=== PATIENT | female | born 1945 | race Caucasian/White ===

== ENCOUNTER 2018-07-13 23:02 | Inpatient (IN) | payer MEDICARE, OTHER ==
[2018-07-13] MEDS ORDERED: ONDANSETRON 4 MG/2 ML VIAL IVP STA (23:21)
[2018-07-13] MEDS ORDERED: SODIUM CHLORIDE 0.9% 1,000 ML IV ONE (23:21)
[2018-07-13] MEDS ORDERED: KETOROLAC 30 MG/ML VIAL IVP STA (23:21)
--- NOTE | 2018-07-13 23:24 | ED Physician Documentation ---
History of Present Illness - Stated complaint Stated Complaint: SIDE PX - Chief complaint Chief Complaint: Abd Pain - History obtained from History obtained from: Patient - History of Present Illness Timing: Prior to arrival - Additonal information Additional information: Patient is a 73-year-old female with history of nephrolithiasis, recurrent UTIs, and other bladder complications presenting with several hours of chills without known fever, although patient took Tylenol, as well as right flank pain that does not radiate and is associated with nausea, vomiting. Patient also reports dysuria without hematuria and denies stool changes. Patient was seen at [facility] earlier today and started on antibiotics, cefpodoxime, for likely UTI and kidney stone. Patient reports receiving a CAT scan earlier today, but unfortunately, does not have the disc or report with her. Currently, clinics are closed and we are unable to obtain these records. Patient is otherwise traveling from [place] and visiting her family and has been active without complaints over the past few days. Patient is compliant with all her other home medications and denies any particular improving or worsening factors to her symptoms. Review of Systems Constitutional: reports: Chills. denies: Fever GI: denies: Abdominal Pain Musculoskeletal: reports: Back pain PD PAST MEDICAL HISTORY - Past Medical History Cardiovascular: Hypertension, High cholesterol, Coronary artery disease, Other (coronary stent) Endocrine/Autoimmune: Other (thyroid disease) - Past Surgical History Past Surgical History: Yes Cardiovascular: Coronary stent - Present Medications Home Medications: Ambulatory Orders Medication Instructions Recorded Confirmed Aspirin [Children's Aspirin] 81 mg PO DAILY 07/14/18 07/14/18 Atorvastatin Calcium 80 mg PO DAILY 07/14/18 07/14/18 Cefpodoxime Proxetil 200 mg PO BID 07/14/18 07/14/18 Cyanocobalamin (Vitamin B-12) 1 tab PO DAILY 07/14/18 07/14/18 [Vitamin B-12] Garlic 580 mg PO DAILY 07/14/18 07/14/18 Levothyroxine Sodium 125 mcg PO DAILY 07/14/18 07/14/18 Losartan Potassium 25 mg PO DAILY 07/14/18 07/14/18 Metoprolol Tartrate 25 mg PO BID 07/14/18 07/14/18 Oxybutynin [Ditropan] 5 mg PO BID 07/14/18 07/14/18 Phenazopyridine [Pyridium] 200 mg PO TID 07/14/18 07/14/18 Sertraline HCl 100 mg PO DAILY 07/14/18 07/14/18 Ticagrelor [Brilinta] 90 mg PO BID 07/14/18 07/14/18 - Allergies Allergies/Adverse Reactions: Allergies Allergy/AdvReac Type Severity Reaction Status Date / Time Sulfa (Sulfonamide Allergy Unknown Verified 07/13/18 23:20 Antibiotics) morphine AdvReac Nausea Verified 07/13/18 23:20 PD ED PE NORMAL - General General: Alert and oriented X 3, No acute distress, Well developed/nourished - HEENT HEENT: Pharynx benign, Dentition benign. No: Moist mucous membranes (Slightly dry mucous membranes) - Cardiac Cardiac: RRR, No murmur - Respiratory Respiratory: No respiratory distress, Clear bilaterally - Abdomen Abdomen: Normal bowel sounds, Soft, Non tender, Non distended - Back Back: No: No CVA TTP (Right CVA tenderness) - Derm Derm: Normal color, Warm and dry, No rash - Extremities Extremities: No deformity, No tenderness to palpate - Neuro Neuro: Alert and oriented X 3, No motor deficit, No sensory deficit - Psych Psych: Normal mood, Normal affect Results - Vitals Vitals: Vital Signs - 24 hr 07/13/18 07/13/18 07/13/18 23:11 23:13 23:30 Temperature 36.7 C 36.7 C Heart Rate 124 H 91 120 H Respiratory 20 24 21 Rate Blood Pressure 158/95 H 204/104 H 158/95 H O2 Saturation 99 93 99 07/13/18 07/14/18 07/14/18 23:59 00:06 00:15 Temperature Heart Rate 97 101 H 95 Respiratory 17 24 20 Rate Blood Pressure 148/78 H 160/81 H 160/81 H O2 Saturation 99 99 100 07/14/18 07/14/18 07/14/18 00:23 00:44 01:15 Temperature 36.2 C L 36.3 C L Heart Rate 115 H 96 83 Respiratory 28 H 18 19 Rate Blood Pressure 94/66 140/75 H 141/71 H O2 Saturation 97 95 95 07/14/18 07/14/18 01:30 01:51 Temperature 36.1 C L Heart Rate 85 89 Respiratory 13 16 Rate Blood Pressure 141/71 H 146/69 H O2 Saturation 96 95 Oxygen O2 Source Nasal cannula Oxygen Flow Rate 3 - EKG (time done) 2352 Rate: Rate (enter#) (103) Rhythm: Sinus tachycardia Intervals: Prolonged QT Ischemia: Non specific changes - Labs Labs: Laboratory Tests 07/13/18 07/13/18 07/13/18 23:27 23:27 23:38 WBC 16.3 H RBC 4.97 Hgb 14.3 Hct 45.9 MCV 92.4 MCH 28.8 MCHC 31.1 L RDW 17.4 H Plt Count 383 MPV 8.2 Neut # (Auto) 12.2 H Lymph # (Auto) 3.1 [place] # (Auto) 0.8 Eos # (Auto) 0.0 Baso # (Auto) 0.2 H Absolute Nucleated RBC 0.01 Nucleated RBC % 0.1 PT INR APTT Sodium 139 Potassium 3.2 L Chloride 103 Carbon Dioxide 11 L* Anion Gap 25.0 H BUN 14 Creatinine 0.8 Estimated GFR (MDRD) 70 L Glucose 197 H POC Whole Bld Glucose 174 H Lactic Acid Calcium 9.6 Total Bilirubin 0.7 AST 47 H ALT 28 Alkaline Phosphatase 101 Troponin I Total Protein 8.6 H Albumin 4.7 Globulin 3.9 Albumin/Globulin Ratio 1.2 Lipase 28 TSH Urine Color Urine Clarity Urine pH Ur Specific [place] Urine Protein Urine Glucose (UA) Urine Ketones Urine Occult Blood Urine Nitrite Urine Bilirubin Urine Urobilinogen Ur Leukocyte Esterase Urine RBC Urine WBC Ur Squamous Epith Cells Urine Bacteria Ur Microscopic Review Urine Culture Comments Salicylates Urine Opiates Screen Ur Oxycodone Screen Urine Methadone Screen Ur Propoxyphene Screen Acetaminophen Ur Barbiturates Screen Ur Tricyclics Screen Ur Phencyclidine Scrn Ur Amphetamine Screen U Methamphetamines Scrn U Benzodiazepines Scrn Urine Cocaine Screen U Cannabinoids Screen 07/13/18 07/13/18 07/13/18 23:50 23:50 23:50 WBC RBC Hgb Hct MCV MCH MCHC RDW Plt Count MPV Neut # (Auto) Lymph # (Auto) [place] # (Auto) Eos # (Auto) Baso # (Auto) Absolute Nucleated RBC Nucleated RBC % PT 12.9 H INR 1.1 APTT 29.4 Sodium Potassium Chloride Carbon Dioxide Anion Gap BUN Creatinine Estimated GFR (MDRD) Glucose POC Whole Bld Glucose Lactic Acid > 10.0 H* Calcium Total Bilirubin AST ALT Alkaline Phosphatase Troponin I < 0.04 Total Protein Albumin Globulin Albumin/Globulin Ratio Lipase TSH Urine Color Urine Clarity Urine pH Ur Specific [place] Urine Protein Urine Glucose (UA) Urine Ketones Urine Occult Blood Urine Nitrite Urine Bilirubin Urine Urobilinogen Ur Leukocyte Esterase Urine RBC Urine WBC Ur Squamous Epith Cells Urine Bacteria Ur Microscopic Review Urine Culture Comments Salicylates Urine Opiates Screen Ur Oxycodone Screen Urine Methadone Screen Ur Propoxyphene Screen Acetaminophen Ur Barbiturates Screen Ur Tricyclics Screen Ur Phencyclidine Scrn Ur Amphetamine Screen U Methamphetamines Scrn U Benzodiazepines Scrn Urine Cocaine Screen U Cannabinoids Screen 07/13/18 07/13/18 07/14/18 23:50 23:50 00:17 WBC RBC Hgb Hct MCV MCH MCHC RDW Plt Count MPV Neut # (Auto) Lymph # (Auto) [place] # (Auto) Eos # (Auto) Baso # (Auto) Absolute Nucleated RBC Nucleated RBC % PT INR APTT Sodium Potassium Chloride Carbon Dioxide Anion Gap BUN Creatinine Estimated GFR (MDRD) Glucose POC Whole Bld Glucose Lactic Acid Calcium Total Bilirubin AST ALT Alkaline Phosphatase Troponin I Total Protein Albumin Globulin Albumin/Globulin Ratio Lipase TSH 1.51 Urine Color DARK YELLOW Urine Clarity CLEAR Urine pH 7.0 Ur Specific [place] 1.020 Urine Protein 100 H Urine Glucose (UA) 100 H Urine Ketones 15 H Urine Occult Blood TRACE-INTA Urine Nitrite POSITIVE H Urine Bilirubin NEGATIVE Urine Urobilinogen 1 (NORMAL) Ur Leukocyte Esterase NEGATIVE Urine RBC 6-10 H Urine WBC 0-3 Ur Squamous Epith Cells FEW Squamous Urine Bacteria Few Ur Microscopic Review INDICATED Urine Culture Comments INDICATED Salicylates < 6.0 Urine Opiates Screen NEGATIVE Ur Oxycodone Screen NEGATIVE Urine Methadone Screen NEGATIVE Ur Propoxyphene Screen NEGATIVE Acetaminophen < 10 L Ur Barbiturates Screen NEGATIVE Ur Tricyclics Screen NEGATIVE Ur Phencyclidine Scrn NEGATIVE Ur Amphetamine Screen NEGATIVE U Methamphetamines Scrn NEGATIVE U Benzodiazepines Scrn NEGATIVE Urine Cocaine Screen NEGATIVE U Cannabinoids Screen NEGATIVE PD MEDICAL DECISION MAKING - ED course Complexity details: reviewed old records, reviewed results, re-evaluated patient, considered differential, d/w patient, d/w family, d/w outside sales consultant ED course: Most concerning for UTI, pyelonephritis, nephrolithiasis given patient's history of such symptoms similar today. Patient was seen at [facility] earlier today and started on multiple medications including a cephalosporin for her likely UTI. Patient reports that she has taken 2 doses so far today. Patient did not appear septic upon arrival, although she was slightly tachycardic and with elevated blood pressure, but upon repeat measurements, these normalized, particularly given her history of hypertension. Also have low suspicion for other complications such as other intra-abdominal pathology, cardiac pathology, pulmonary pathology or otherwise. However, during her work-up, patient had a witnessed seizure of approximately 2 to 3 minutes, mostly tonic in nature. Patient was slightly hypoxic and required a nonrebreather during this time. No evidence of tongue biting or incontinence noted. Patient was postictal. Both patient and family deny any history of seizures.Unsure as to why patient experienced a seizure. Patient denies alcohol or drug use and toxicology screening returned negative. Patient does have thyroid disease and reports that she is compliant with all medications and TSH measured today was appropriate.Remainder of work-up including EKG, troponin, and other labs also unremarkable except for leukocytosis, likely due to her underlying infection. Of note, lactic acid and other measurements such as carbon dioxide, were immediately taken after her seizure and feel that that is reflective of her seizure activity, not infection or other complication. Patient then later stated that she also requires CPAP at home, which could be contributing to her mild hypoxia.CT head and CT abdomen/pelvis were obtained. CT head unremarkable for acute pathology including stroke. CT abdomen/pelvis revealed mild right- sided hydronephrosis without obstructing stone, but some artifact present from right hip prosthetic. Patient continues to complain of right flank pain and given leukocytosis, do feel it appropriate to admit her for pyelonephritis. Also discussed first-time seizure with hospitalist, who requested that I consult with neurology. Neurology's recommendations included no driving for 6 months and follow-up with MRI and EEG, either as an inpatient or as an outpatient. If patient was to have abnormal results or repeat seizure, she can be started on an antiepileptic drug. This information was conveyed to the hospitalist. Otherwise, hospitalist to admit and patient amenable to this plan. Departure - Departure Disposition: 66 [facility] DC/Xfer Clinical Impression: Pyelonephritis, Seizure Condition: Fair
[2018-07-14] LABS: BASOPHILS # (AUTO) 0.2 10^3/uL (0.0-0.1); BASOPHILS % (AUTO) 1.4 %; EOSINOPHILS % (AUTO) 0.1 %; HGB - HEMOGLOBIN 14.3 g/dL (12.0-16.0); LYMPHOCYTES # (AUTO) 3.1 10^3/uL (1.5-3.5); LYMPHOCYTES % (AUTO) 18.8 %; MEAN CORPUSCULAR HEMOGLOBIN 28.8 pg (27.0-31.0); MEAN CORPUSCULAR HGB CONC 31.1 g/dL (32.0-36.0); MEAN CORPUSCULAR VOLUME 92.4 fL (81.0-99.0); MEAN PLATELET VOLUME 8.2 fL (7.9-10.8); MONOCYTES # (AUTO) 0.8 10^3/uL (0.0-1.0); NEUTROPHILS # (AUTO) 12.2 10^3/uL (1.5-6.6); NEUTROPHILS % (AUTO) 74.7 %; PLT - PLATELET COUNT 383 10^3/uL (130-450); RED BLOOD COUNT 4.97 10^6/uL (4.20-5.40); RED CELL DISTRIBUTION WIDTH 17.4 % (12.0-15.0); WHITE BLOOD COUNT 16.3 x10^3/uL (4.8-10.8)
[2018-07-14 00:05] LABS: INR 1.1 (0.8-1.2); PT - PROTHROMBIN TIME 12.9 secs (9.9-12.6)
[2018-07-14 00:12] LABS: PARTIAL THROMBOPLASTIN TIME 29.4 secs (24.9-33.3)
[2018-07-14 00:18] LABS: MUDS CUTOFF CONCENTRATIONS CUTOFF CONC BELOW:
[2018-07-14 00:20] LABS: BILIRUBIN,URINE NEGATIVE (NEGATIVE); GLUCOSE, URINE (UA) 100 mg/dL (NEGATIVE); KETONES,URINE (UA) 15 mg/dL (NEGATIVE); LEUKOCYTE ESTERASE, URINE NEGATIVE (NEGATIVE); NITRITE,URINE POSITIVE (NEGATIVE); OCCULT BLOOD,URINE TRACE-INTA (NEGATIVE); PROTEIN,URINE 100 mg/dL (NEGATIVE); UROBILINOGEN,URINE 1 (NORMAL) E.U./dL (NORMAL)
[2018-07-14 00:31] LABS: BACTERIA,URINE Few /HPF (None Seen); CLARITY,URINE CLEAR (CLEAR); SQUAMOUS EPITHELIAL CELL,UR FEW Squamous (<= Few)
[2018-07-14 00:32] LABS: AMPHETAMINE SCREEN,URINE NEGATIVE (NEGATIVE); BENZODIAZEPINES SCREEN, URINE NEGATIVE (NEGATIVE); COCAINE SCREEN URINE NEGATIVE (NEGATIVE); METHADONE SCREEN, URINE NEGATIVE (NEGATIVE); METHAMPHETAMINES SCREEN, URINE NEGATIVE (NEGATIVE); OPIATE SCREEN, URINE NEGATIVE (NEGATIVE); OXYCODONE SCREEN, URINE NEGATIVE (NEGATIVE); PROPOXYPHENE SCREEN, URINE NEGATIVE (NEGATIVE); TRICYCLIC ANTIDEPRESSANT,URINE NEGATIVE (NEGATIVE)
[2018-07-14 00:34] LABS: ACETAMINOPHEN < 10 ug/mL (10-30); SALICYLATE < 6.0 mg/dL
[2018-07-14 00:40] LABS: ALBUMIN 4.7 g/dL (3.2-5.5); ALBUMIN/GLOBULIN RATIO 1.2 (1.0-2.2); BILIRUBIN,TOTAL 0.7 mg/dL (0.2-1.0); CALCIUM 9.6 mg/dL (8.5-10.3); CREATININE 0.8 mg/dL (0.4-1.0); TOTAL PROTEIN 8.6 g/dL (6.7-8.2)
--- NOTE | 2018-07-14 00:51 | CT Report ---
Reason: History of stones, R back pain, n/v Procedure Date: 07/14/2018 Accession Number: [id number] / [id number] Procedure: CT - Abdomen/Pelvis WO CPT Code: FULL RESULT: EXAM: CT ABDOMEN AND PELVIS (CT KUB) EXAM DATE: 07/14/2018 12:38 AM. CLINICAL HISTORY: Nausea, vomiting, right-sided back pain. History of kidney stones. COMPARISONS: None. TECHNIQUE: Routine axial helical CT imaging was performed through the abdomen and pelvis without IV contrast. Reconstructions: Coronal and sagittal. In accordance with CT protocol optimization, one or more of the following dose reduction techniques were utilized for this exam: automated exposure control, adjustment of mA and/or KV based on patient size, or use of iterative reconstructive technique. FINDINGS: Right Kidney/Ureter: There is slight right-sided hydroureteronephrosis. However, an obstructing stone is not visualized on this examination. Of note, the distal ureter is obscured by the streak artifact resulting from the right hip prosthesis. As such, a potential obstructing stone at this distal ureteral level could be obscured, if present. Left Kidney/Ureter: There are 2 tiny stones within the left lower kidney. No left-sided hydroureteronephrosis is demonstrated at this time. Suspect left-sided extrarenal pelvis. Abdominal Solid Organs: Abdominal parenchymal organs are without significant abnormality within the confines of a noncontrast exam. Gallbladder fundal adenomyomatosis. Bowel: No evidence of bowel obstruction. There is a moderate to large amount of retained colonic fecal matter. Appendix: Normal. Lymph Nodes: No definite pathologic lymphadenopathy. Fluid: No significant ascites. Vasculature: Normal caliber aorta. Moderate to severe aortic and branch vessel atherosclerosis is present. Pelvis: Streak artifact resulting from the right hip prosthesis obscures detailed assessment of the pelvis. Bladder is drained by Lala catheter, precluding assessment. Bones: No definite suspicious bony lesions demonstrated. Lower Chest: There is dependent airspace disease bilaterally, presumably atelectasis. Aspiration or infection difficult to exclude. There is moderate coronary vascular calcifications. IMPRESSION: 1. Mild right-sided hydroureteronephrosis. An obstructing stone is not evident on this exam. Of note, the right distal ureter is obscured by the streak artifact from the right hip prosthesis. As such, a potential stone within the right distal ureter would be obscured, if present. No intrarenal stones within the right kidney. 2. There are 2 punctate left lower kidney stones. No left-sided hydroureteronephrosis demonstrated. RADIA
--- NOTE | 2018-07-14 01:33 | CT Report ---
Reason: seizure Procedure Date: 07/14/2018 Accession Number: [id number] / [id number] Procedure: CT - HEAD WO CPT Code: FULL RESULT: EXAM: CT HEAD EXAM DATE: 07/14/2018 12:40 AM. CLINICAL HISTORY: Seizure. COMPARISON: None. TECHNIQUE: Multiaxial CT images were obtained from the foramen magnum to the vertex. Reformats: Sagittal and coronal. IV contrast: None. In accordance with CT protocol optimization, one or more of the following dose reduction techniques were utilized for this exam: automated exposure control, adjustment of mA and/or KV based on patient size, or use of iterative reconstructive technique. FINDINGS: Parenchyma: No intraparenchymal hemorrhage. No evidence of mass, midline shift, or CT findings of infarction. Mckeon-white differentiation is distinct. Extraaxial Spaces: Normal for age. No subdural or epidural collections identified. Ventricles: Normal in size and position. Sinuses and Orbits: Imaged paranasal sinuses, orbits, and mastoids show no significant abnormality. Bones: No evidence of fracture or calvarial defect. Other: None. IMPRESSION: Normal head CT. RADIA
[2018-07-14] MEDS ORDERED: ONDANSETRON 4 MG/2 ML VIAL IVP PRN (02:42)
[2018-07-14] MEDS ORDERED: cefTRIAXone 2 GM in SODIUM CHLORIDE 0.9% MINIBAG 100 ML IV SCH (02:50)
--- NOTE | 2018-07-14 02:55 | HISTORY & PHYSICAL EXAMINATION ---
Chief Complaint - Chief Complaint Chief Complaint: right flank pain History of Present Illness - Admitted From Admitted From:: [facility] ED - History Obtained From Records Reviewed: yes History obtained from: patient - History of Present Illness HPI Comment/Other: Patient seen on 07/14/18 at 0230am. Patient is a 73 y/o female who presented to the ED with right flank pain. It started 3 days ago and has been worsening. She was seen at the [facility] on 07/13/[address] scan done which according to her did not show any stone on the right side, but showed 2 small non-obstructing on the left. She was given pyridium and prescribed an oral cephalosporin of which she has taken 2 doses. She presented to the ED because of worsening pain. In the ED she experienced an episode of tonic clonic activity concerning for a seizure. It resolved before any medication could be administered. She says she was aware through out the experience. She denies any previous history of seizures. She denied fever or chills. No chest pain or abdominal pain. She has been nauseous today and vomited at home and on the way to the hospital. She also reports a moderate headache today. In the ED, CT head was unremarkable. However her UA suggested a UTI and she had a lactic acid of 10. These labs were obtained just shortly after the seizure-like activity. At the time of my visit, she was fully awake and alert and provided a full account with no difficult. She lives in [facility]. She is here visiting her sons who live in [place]. She lived in [place] for 10 years. She drove up from [place]. She recent had an [place] in February 2018 warranting PCI with stent placement. 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 Had to be on ceftriaxone 2g IV daily for 60 days. Was temporally disabled as a result - Past Surgical History Ortho: reports: Hip replacement (right) /CHEF UNDER: reports: Tubal ligation, Other (lithotripsy) Cardiovascular: reports: Coronary stent, Other (bilateral Carotid endarterectomy) HEENT: reports: Tonsil/Adenoidectomy - Family & Social History Family History: Mother: Cancer (bladder cancer), Father: CAD Living Situation: Alone Social History Notes: Patient is on [address] visiting family in [place]. She drove up from [facility] where she resides. She denies tobacco (quit 2000. 40 ppd year prior). Denies illicit drug use - POLST Patient has POLST: No POLST Status: Full Code Meds/Allgy - Home Medications Home Medications: Ambulatory Orders Medication Instructions Recorded Confirmed Aspirin [Children's Aspirin] 81 mg PO DAILY 07/14/18 07/14/18 Atorvastatin Calcium 80 mg PO DAILY 07/14/18 07/14/18 Cefpodoxime Proxetil 200 mg PO BID 07/14/18 07/14/18 Cyanocobalamin (Vitamin B-12) 1 tab PO DAILY 07/14/18 07/14/18 [Vitamin B-12] Garlic 580 mg PO DAILY 07/14/18 07/14/18 Levothyroxine Sodium 125 mcg PO DAILY 07/14/18 07/14/18 Losartan Potassium 25 mg PO DAILY 07/14/18 07/14/18 Metoprolol Tartrate 25 mg PO BID 07/14/18 07/14/18 Oxybutynin [Ditropan] 5 mg PO BID 07/14/18 07/14/18 Phenazopyridine [Pyridium] 200 mg PO TID 07/14/18 07/14/18 Sertraline HCl 100 mg PO DAILY 07/14/18 07/14/18 Ticagrelor [Brilinta] 90 mg PO BID 07/14/18 07/14/18 - Allergies Allergies/Adverse Reactions: Allergies Allergy/AdvReac Type Severity Reaction Status Date / Time Sulfa (Sulfonamide Allergy Unknown Verified 07/13/18 23:20 Antibiotics) morphine AdvReac Nausea Verified 07/13/18 23:20 Review of Systems - Constitutional Constitutional: denies: Fever, Chills, Night sweats - Eyes Eyes: denies: Blurred vision, Dipolpia - Ears, Nose & Throat Ears, Nose & Throat: denies: Nasal pain, Nasal discharge, Sore throat, Hoarseness - Cardiovascular Cariovascular: denies: Irregular heart rate, Chest pain, Edema, Lightheadedness, Syncope - Respiratory Respiratory: denies: Cough, Sputum production, Wheezing, Snoring, SOB at rest, SOB with exertion - Gastrointestinal Gastrointestinal: reports: Nausea, Vomiting. denies: Abdominal pain, Diarrhea, Change in bowel habits - Genitourinary Genitourinary: reports: Flank pain (right). denies: Frequency, Urgency, Hematuria - Musculoskeletal Musculoskeletal: denies: Back pain, Stiffness, Joint pain - Integumentary Integumentary: denies: Rash, Pruritis, Lesions - Neurological Neurological: reports: Headache, Seizures. denies: Focal weakness, Dizziness, Numbness - Psychiatric Psychiatric: reports: Depression - Endocrine Endocrine: denies: Polyuria, Polydypsia - Hematologic/Lymphatic Hematologic/Lymphatic: denies: Anemia, Bruising Prior Level of Functionality: She is independent of activities of daily living Exam - Vital Signs Vital Signs: Vital Signs x48h Temp Pulse Resp BP Pulse Ox 07/14/18 01:51 36.1 C L 89 16 146/69 H 95 07/14/18 01:30 85 13 141/71 H 96 07/14/18 01:15 36.3 C L 83 19 141/71 H 95 07/14/18 00:44 36.2 C L 96 18 140/75 H 95 07/14/18 00:23 115 H 28 H 94/66 97 07/14/18 00:15 95 20 160/81 H 100 07/14/18 00:06 101 H 24 160/81 H 99 07/13/18 23:59 97 17 148/78 H 99 07/13/18 23:30 120 H 21 158/95 H 99 07/13/18 23:13 36.7 C 91 24 204/104 H 93 07/13/18 23:11 36.7 C 124 H 20 158/95 H 99 - Physical Exam General Appearance: positive: Alert, Mild distress Eyes Bilateral: positive: Normal inspection, PERRL, EOMI ENT: positive: ENT inspection nml Neck: positive: Nml inspection, No JVD, Trachea midline Respiratory: positive: No respiratory distress, Breath sounds nml. negative: Wheezes, Rales, Rhonchi Cardiovascular: positive: No murmur, Tachycardia Abdomen: positive: No organomegaly, Nml bowel sounds, No distention. negative: Guarding, Rebound Back: positive: Nml inspection Skin: positive: Color nml Extremities: positive: Non-tender, Full ROM, Nml appearance. negative: No pedal edema Neurologic/Psychiatric: positive: Oriented x3, CN's nml (2-12), Motor nml, Sensation nml. negative: Facial droop, Slurred/abnml speech, Depressed mood/affect Sepsis Event Note (H) - Evaluation Current Stage of Sepsis: Sepsis Possible source of Sepsis: positive: Genitourinary - Sepsis Criteria Sepsis Criteria: Suspected or Documented, WBC count greater than 12,000 or less than 4000 Conclusion/Plan - Problem List (1) Pyelonephritis Conclusion/Plan: Rocephin 2g IV ordered Continue pyridium 100mg tid for 3 days IV hydration with normal saline Blood cultures pending Tylenol for fever (2) Seizure Conclusion/Plan: New onset. Etiology undetermined Neurology was contacted by ED Recommended MRI brain w/o contrast, EEG (may be done out patient) No anti-epileptic medication currently. However should patient seize again, maybe administer Keppra 750mg IV bid patient is not to drive for 6 months. This was explained to patient who expressed understanding. Son will drive her back to [facility]. (3) Coronary artery disease Conclusion/Plan: s/p PCI with stent in February 2018 Ob brilinta 90mg po bid (4) Hypothyroidism Conclusion/Plan: TSH was within normal level Resume Synthroid once verified (5) Hyperlipidemia Conclusion/Plan: On atorvastatin (6) Hypertension Conclusion/Plan: On losartan and metoprolol (7) Depression Conclusion/Plan: On sertraline - Lab Results Fish Bones: 07/13/18 23:27 07/13/18 23:27 Core Measures - Anticipated LOS I expect patient to be DC'd or transferred within 96 hours.: Yes - DVT/VTE - Prophylaxis VTE/DVT Device ordered at admit?: Yes
[2018-07-14] MEDS ORDERED: SODIUM CHLORIDE 0.9% 1,000 ML IV SCH (03:00)
[2018-07-14] MEDS ORDERED: oxyCODONE 5 MG TABLET PO PRN (04:07)
[2018-07-14] MEDS: SODIUM CHLORIDE FLUSH 0.9% 10 ML SYRINGE IVP PRN ×3 (04:09→11:25)
[2018-07-14] MEDS: PHENAZOPYRIDINE 100 MG TABLET PO SCH ×3 (05:46→22:29)
[2018-07-14 06:44] LABS: BASOPHILS # (AUTO) 0.1 10^3/uL (0.0-0.1); BASOPHILS % (AUTO) 0.7 %; LYMPHOCYTES # (AUTO) 1.2 10^3/uL (1.5-3.5); LYMPHOCYTES % (AUTO) 9.6 %; MEAN CORPUSCULAR HEMOGLOBIN 28.5 pg (27.0-31.0); MEAN CORPUSCULAR HGB CONC 32.6 g/dL (32.0-36.0); MEAN CORPUSCULAR VOLUME 87.4 fL (81.0-99.0); MEAN PLATELET VOLUME 7.8 fL (7.9-10.8); MONOCYTES # (AUTO) 0.8 10^3/uL (0.0-1.0); MONOCYTES % (AUTO) 6.3 %; NEUTROPHILS # (AUTO) 10.4 10^3/uL (1.5-6.6); NEUTROPHILS % (AUTO) 83.4 %; PLT - PLATELET COUNT 302 10^3/uL (130-450); RED BLOOD COUNT 4.55 10^6/uL (4.20-5.40); RED CELL DISTRIBUTION WIDTH 17.1 % (12.0-15.0); WHITE BLOOD COUNT 12.5 x10^3/uL (4.8-10.8)
[2018-07-14 06:47] LABS: CALCIUM 8.8 mg/dL (8.5-10.3); CREATININE 0.5 mg/dL (0.4-1.0)
[2018-07-14] MEDS: POLYETHYLENE GLYCOL 3350 17 GM PACKET PO SCH (08:08)
[2018-07-14] MEDS: ACETAMINOPHEN 325 MG TABLET PO PRN ×2 (08:08→20:12)
[2018-07-14] MEDS: SODIUM CHLORIDE FLUSH 0.9% 10 ML SYRINGE IVP SCH ×2 (08:10→17:24)
[2018-07-14] MEDS ORDERED: POTASSIUM CHLORIDE 20 MEQ TABLET PO SCH (08:50)
[2018-07-14] MEDS ORDERED: ATORVASTATIN 40 MG TABLET PO SCH (09:00)
[2018-07-14] MEDS ORDERED: CYANOCOBALAMIN PO SCH (09:00)
[2018-07-14] MEDS: LOSARTAN 50 MG TABLET PO SCH (09:53)
[2018-07-14] MEDS: LEVOTHYROXINE 125 MCG TABLET PO SCH ×2 (09:54→13:34)
[2018-07-14] MEDS: TICAGRELOR 90 MG PO SCH ×2 (09:54→20:14)
[2018-07-14] MEDS: OXYBUTYNIN 5MG TABLET PO SCH ×2 (09:54→20:13)
[2018-07-14] MEDS: METOPROLOL TARTRATE 25 MG TABLET PO SCH ×2 (09:54→20:13)
[2018-07-14] MEDS: ASPIRIN CHEW 81 MG TABLET PO SCH (09:54)
[2018-07-14] MEDS: SERTRALINE 50 MG TABLET PO SCH ×2 (09:55→13:34)
[2018-07-14] MEDS ORDERED: PROMETHAZINE INJ 25 MG in SODIUM CHLORIDE 0.9% 50 ML IV PRN (10:54)
[2018-07-14] MEDS: PROCHLORPERAZINE 10 MG/2 ML VIAL IVP PRN ×2 (11:25→17:24)
[2018-07-14] MEDS: SODIUM CHLORIDE 0.9% 1,000 ML IV SCH (12:00)
--- NOTE | 2018-07-14 14:22 | PROVIDER PROGRESS NOTE ---
Subjective - Prog Note Date Prog Note Date: 07/14/18 - Subjective Pt reports feeling: Improved Subjective: pt report her right flank is better but she complain of nausea, no vomiting. pt denies fever, chill, chest pain, cough. Current Medications - Current Medications Current Medications: Active Medications Acetaminophen (Tylenol) 650 mg PO Q4HR PRN PRN Reason: Pain 1 to 4 Last Admin: 07/14/18 08:08 Dose: 650 mg Aspirin (St Adolfo Aspirin) 81 mg PO DAILY [facility] Last Admin: 07/14/18 09:54 Dose: 81 mg Atorvastatin Calcium (Lipitor) 40 mg PO QPM [facility] Ceftriaxone Sodium 2 gm/ (Sodium Chloride) 100 mls @ 200 mls/hr IV Q24H [facility] Sodium Chloride (Normal Saline 0.9%) 1,000 mls @ 83.333 mls/hr IV .Q12H [facility] Stop: 07/15/18 10:59 Last Admin: 07/14/18 12:00 Dose: 83.333 mls/hr Promethazine HCl 25 mg/ Sodium (Chloride) 51 mls @ 100 mls/hr IV Q6H PRN PRN Reason: Nausea / Vomiting Levothyroxine Sodium (Synthroid) 125 mcg PO DAILY [facility] Last Admin: 07/14/18 13:34 Dose: Not Given Losartan Potassium (Cozaar) 25 mg PO DAILY [facility] Last Admin: 07/14/18 09:53 Dose: 25 mg Metoprolol Tartrate (Lopressor) 25 mg PO BID [facility] Last Admin: 07/14/18 09:54 Dose: 25 mg Non-Formulary Medication (Ticagrelor [Brilinta]) 90 mg PO BID [facility] Last Admin: 07/14/18 09:54 Dose: 90 mg Ondansetron HCl (Zofran Inj) 4 mg IVP Q6HR PRN PRN Reason: Nausea / Vomiting Last Admin: 07/14/18 08:48 Dose: 4 mg Oxybutynin Chloride (Ditropan) 5 mg PO BID [facility] Last Admin: 07/14/18 09:54 Dose: 5 mg Oxycodone HCl (Roxicodone) 5 mg PO Q4HR PRN PRN Reason: PAIN Phenazopyridine HCl (Pyridium) 100 mg PO TID [facility] Stop: 07/17/18 05:59 Last Admin: 07/14/18 05:46 Dose: 100 mg Polyethylene Glycol (Miralax) 17 gm PO DAILY [facility] Last Admin: 07/14/18 08:08 Dose: 17 gm Prochlorperazine Edisylate (Compazine Inj) 10 mg IVP Q4HR PRN PRN Reason: Nausea / Vomiting Last Admin: 07/14/18 11:25 Dose: 10 mg Sertraline HCl (Zoloft) 100 mg PO DAILY [facility] Last Admin: 07/14/18 13:34 Dose: Not Given Sodium Chloride (Normal Saline Flush 0.9%) 10 ml IVP PRN PRN PRN Reason: NEEDED PER PROVIDER ORDERS Last Admin: 07/14/18 11:25 Dose: 10 ml Sodium Chloride (Normal Saline Flush 0.9%) 10 ml IVP 0100,0900,1700 [facility] Last Admin: 07/14/18 08:10 Dose: 10 ml Aspirin [Children's Aspirin] 81 mg PO DAILY 07/14/18 Atorvastatin Calcium 40 mg PO QPM 07/14/18 Cyanocobalamin (Vitamin B-12) [Vitamin B-12] 1 tab PO DAILY 07/14/18 Garlic 580 mg PO DAILY 07/14/18 Levothyroxine Sodium 125 mcg PO QDAC 07/14/18 Losartan Potassium 25 mg PO DAILY 07/14/18 Metoprolol Tartrate 25 mg PO BID 07/14/18 Oxybutynin [Ditropan] 5 mg PO BID 07/14/18 Pantoprazole Sodium [Protonix] 40 mg PO QDAC 07/14/18 Sertraline HCl 100 mg PO DAILY 07/14/18 Ticagrelor [Brilinta] 90 mg PO BID 07/14/18 Objective - Vital Signs/Intake & Output Reviewed Vital Signs: Yes Vital Signs: Vital Signs x48h Temp Pulse Resp BP BP Pulse Ox 07/14/18 09:54 155/81 H 07/14/18 07:35 36.8 C 91 18 155/81 H 96 Intake & Output: Intake & Output 07/11/18 07/12/18 07/13/18 07/14/18 23:59 23:59 23:59 23:59 Intake Total 1972.084 Output Total 1325 Balance 647.084 - Objective General Appearance: positive: No acute distress, Alert. negative: Lethargic Eyes Bilateral: positive: Normal inspection, PERRL, No lid inflammation, Conjunctivae nml ENT: positive: ENT inspection nml, Pharynx nml, No signs of dehydration. negative: Purulent nasal drainage, Pharyngeal erythema, Oral lesions Neck: positive: Nml inspection, Thyroid nml, No JVD, Trachea midline. negative: Thyromegaly, Lymphadenopathy (R), Lymphadenopathy (L), Stiff neck, Swel ling/bruising, Tracheal deviation Respiratory: positive: Chest non-tender, No respiratory distress, Breath sounds nml. negative: Wheezes, Rales, Rhonchi Cardiovascular: positive: Regular rate & rhythm, No murmur, No gallop. negative: Irregularly irregular, Extrasystoles, Tachycardia, Bradycardia, JVD present, Systolic murmur, Diastolic murmur Peripheral Pulses: 2+ Radial (R), 2+ Radial (L), 2+ Dorsalis pedis (R), 2+ Ernesto salis pedis (L) Abdomen: positive: Non-tender, No organomegaly, Nml bowel sounds, No distention. negative: Tenderness, Guarding, Rebound Back: positive: Nml inspection. negative: CVA tenderness (R), CVA tenderness (L) Skin: positive: Color nml, No rash, Warm, Dry. negative: Cyanosis, Diaphoresis, Pallor Extremities: positive: Non-tender, Nml appearance. negative: Calf tenderness, Joint swelling, Claude's sign/cords Neurologic/Psychiatric: positive: Oriented x3, Sensation nml, Mood/affect nml. negative: Weakness, Sensory loss, Facial droop, Slurred/abnml speech, Depressed mood/affect - Lab Results Fish Bones: 07/14/18 06:25 07/14/18 06:25 Other Labs: Lab Results x24hrs 07/14/18 07/14/18 07/14/18 Range/Units 06:25 06:25 06:25 WBC 12.5 H (4.8-10.8) x10^3/uL RBC 4.55 (4.20-5.40) 10^6/uL Hgb 13.0 (12.0-16.0) g/dL Hct 39.8 (37.0-47.0) % MCV 87.4 (81.0-99.0) fL MCH 28.5 (27.0-31.0) pg MCHC 32.6 (32.0-36.0) g/dL RDW 17.1 H (12.0-15.0) % Plt Count 302 (130-450) 10^3/uL MPV 7.8 L (7.9-10.8) fL Neut # (Auto) 10.4 H (1.5-6.6) 10^3/uL Lymph # (Auto) 1.2 L (1.5-3.5) 10^3/uL [place] # (Auto) 0.8 (0.0-1.0) 10^3/uL Eos # (Auto) 0.0 (0.0-0.7) 10^3/uL Baso # (Auto) 0.1 (0.0-0.1) 10^3/uL Absolute Nucleated RBC 0.00 x10^3/uL Nucleated RBC % 0.0 /100WBC PT (9.9-12.6) secs INR (0.8-1.2) APTT (24.9-33.3) secs Sodium 135 (135-145) mmol/L Potassium 3.3 L (3.5-5.0) mmol/L Chloride 102 (101-111) mmol/L Carbon Dioxide 21 (21-32) mmol/L Anion Gap 12.0 (6-13) BUN 12 (6-20) mg/dL Creatinine 0.5 (0.4-1.0) mg/dL Estimated GFR (MDRD) 121 (>89) Glucose 129 H (70-100) mg/dL POC Whole Bld Glucose (70 - 100) mg/dL Lactic Acid 0.7 (0.5-2.2) mmol/L Calcium 8.8 (8.5-10.3) mg/dL Total Bilirubin (0.2-1.0) mg/dL AST (10-42) IU/L ALT (10-60) IU/L Alkaline Phosphatase (42-121) IU/L Troponin I (<0.49) ng/mL Total Protein (6.7-8.2) g/dL Albumin (3.2-5.5) g/dL Globulin (2.1-4.2) g/dL Albumin/Globulin Ratio (1.0-2.2) Lipase (22-51) U/L TSH (0.34-5.60) uIU/mL Urine Color Urine Clarity (CLEAR) Urine pH (5.0-7.5) PH Ur Specific [place] (1.002-1.030) Urine Protein (NEGATIVE) mg/dL Urine Glucose (UA) (NEGATIVE) mg/dL Urine Ketones (NEGATIVE) mg/dL Urine Occult Blood (NEGATIVE) Urine Nitrite (NEGATIVE) Urine Bilirubin (NEGATIVE) Urine Urobilinogen (NORMAL) E.U./dL Ur Leukocyte Esterase (NEGATIVE) Urine RBC (0-5) /HPF Urine WBC (0-5) /HPF Ur Squamous Epith Cells (<= Few) Urine Bacteria (None Seen) /HPF Ur Microscopic Review Urine Culture Comments Salicylates mg/dL Urine Opiates Screen (NEGATIVE) Ur Oxycodone Screen (NEGATIVE) Urine Methadone Screen (NEGATIVE) Ur Propoxyphene Screen (NEGATIVE) Acetaminophen (10-30) ug/mL Ur Barbiturates Screen (NEGATIVE) Ur Tricyclics Screen (NEGATIVE) Ur Phencyclidine Scrn (NEGATIVE) Ur Amphetamine Screen (NEGATIVE) U Methamphetamines Scrn (NEGATIVE) U Benzodiazepines Scrn (NEGATIVE) Urine Cocaine Screen (NEGATIVE) U Cannabinoids Screen (NEGATIVE) 07/14/18 07/13/18 07/13/18 Range/Units 00:17 23:50 23:50 WBC (4.8-10.8) x10^3/uL RBC (4.20-5.40) 10^6/uL Hgb (12.0-16.0) g/dL Hct (37.0-47.0) % MCV (81.0-99.0) fL MCH (27.0-31.0) pg MCHC (32.0-36.0) g/dL RDW (12.0-15.0) % Plt Count (130-450) 10^3/uL MPV (7.9-10.8) fL Neut # (Auto) (1.5-6.6) 10^3/uL Lymph # (Auto) (1.5-3.5) 10^3/uL [place] # (Auto) (0.0-1.0) 10^3/uL Eos # (Auto) (0.0-0.7) 10^3/uL Baso # (Auto) (0.0-0.1) 10^3/uL Absolute Nucleated RBC x10^3/uL Nucleated RBC % /100WBC PT (9.9-12.6) secs INR (0.8-1.2) APTT (24.9-33.3) secs Sodium (135-145) mmol/L Potassium (3.5-5.0) mmol/L Chloride (101-111) mmol/L Carbon Dioxide (21-32) mmol/L Anion Gap (6-13) BUN (6-20) mg/dL Creatinine (0.4-1.0) mg/dL Estimated GFR (MDRD) (>89) Glucose (70-100) mg/dL POC Whole Bld Glucose (70 - 100) mg/dL Lactic Acid (0.5-2.2) mmol/L Calcium (8.5-10.3) mg/dL Total Bilirubin (0.2-1.0) mg/dL AST (10-42) IU/L ALT (10-60) IU/L Alkaline Phosphatase (42-121) IU/L Troponin I (<0.49) ng/mL Total Protein (6.7-8.2) g/dL Albumin (3.2-5.5) g/dL Globulin (2.1-4.2) g/dL Albumin/Globulin Ratio (1.0-2.2) Lipase (22-51) U/L TSH 1.51 (0.34-5.60) uIU/mL Urine Color DARK YELLOW Urine Clarity CLEAR (CLEAR) Urine pH 7.0 (5.0-7.5) PH Ur Specific [place] 1.020 (1.002-1.030) Urine Protein 100 H (NEGATIVE) mg/dL Urine Glucose (UA) 100 H (NEGATIVE) mg/dL Urine Ketones 15 H (NEGATIVE) mg/dL Urine Occult Blood TRACE-INTA (NEGATIVE) Urine Nitrite POSITIVE H (NEGATIVE) Urine Bilirubin NEGATIVE (NEGATIVE) Urine Urobilinogen 1 (NORMAL) (NORMAL) E.U./dL Ur Leukocyte Esterase NEGATIVE (NEGATIVE) Urine RBC 6-10 H (0-5) /HPF Urine WBC 0-3 (0-5) /HPF Ur Squamous Epith Cells FEW Squamous (<= Few) Urine Bacteria Few (None Seen) /HPF Ur Microscopic Review INDICATED Urine Culture Comments INDICATED Salicylates < 6.0 mg/dL Urine Opiates Screen NEGATIVE (NEGATIVE) Ur Oxycodone Screen NEGATIVE (NEGATIVE) Urine Methadone Screen NEGATIVE (NEGATIVE) Ur Propoxyphene Screen NEGATIVE (NEGATIVE) Acetaminophen < 10 L (10-30) ug/mL Ur Barbiturates Screen NEGATIVE (NEGATIVE) Ur Tricyclics Screen NEGATIVE (NEGATIVE) Ur Phencyclidine Scrn NEGATIVE (NEGATIVE) Ur Amphetamine Screen NEGATIVE (NEGATIVE) U Methamphetamines Scrn NEGATIVE (NEGATIVE) U Benzodiazepines Scrn NEGATIVE (NEGATIVE) Urine Cocaine Screen NEGATIVE (NEGATIVE) U Cannabinoids Screen NEGATIVE (NEGATIVE) 07/13/18 07/13/18 07/13/18 Range/Units 23:50 23:50 23:50 WBC (4.8-10.8) x10^3/uL RBC (4.20-5.40) 10^6/uL Hgb (12.0-16.0) g/dL Hct (37.0-47.0) % MCV (81.0-99.0) fL MCH (27.0-31.0) pg MCHC (32.0-36.0) g/dL RDW (12.0-15.0) % Plt Count (130-450) 10^3/uL MPV (7.9-10.8) fL Neut # (Auto) (1.5-6.6) 10^3/uL Lymph # (Auto) (1.5-3.5) 10^3/uL [place] # (Auto) (0.0-1.0) 10^3/uL Eos # (Auto) (0.0-0.7) 10^3/uL Baso # (Auto) (0.0-0.1) 10^3/uL Absolute Nucleated RBC x10^3/uL Nucleated RBC % /100WBC PT 12.9 H (9.9-12.6) secs INR 1.1 (0.8-1.2) APTT 29.4 (24.9-33.3) secs Sodium (135-145) mmol/L Potassium (3.5-5.0) mmol/L Chloride (101-111) mmol/L Carbon Dioxide (21-32) mmol/L Anion Gap (6-13) BUN (6-20) mg/dL Creatinine (0.4-1.0) mg/dL Estimated GFR (MDRD) (>89) Glucose (70-100) mg/dL POC Whole Bld Glucose (70 - 100) mg/dL Lactic Acid > 10.0 H* (0.5-2.2) mmol/L Calcium (8.5-10.3) mg/dL Total Bilirubin (0.2-1.0) mg/dL AST (10-42) IU/L ALT (10-60) IU/L Alkaline Phosphatase (42-121) IU/L Troponin I < 0.04 (<0.49) ng/mL Total Protein (6.7-8.2) g/dL Albumin (3.2-5.5) g/dL Globulin (2.1-4.2) g/dL Albumin/Globulin Ratio (1.0-2.2) Lipase (22-51) U/L TSH (0.34-5.60) uIU/mL Urine Color Urine Clarity (CLEAR) Urine pH (5.0-7.5) PH Ur Specific [place] (1.002-1.030) Urine Protein (NEGATIVE) mg/dL Urine Glucose (UA) (NEGATIVE) mg/dL Urine Ketones (NEGATIVE) mg/dL Urine Occult Blood (NEGATIVE) Urine Nitrite (NEGATIVE) Urine Bilirubin (NEGATIVE) Urine Urobilinogen (NORMAL) E.U./dL Ur Leukocyte Esterase (NEGATIVE) Urine RBC (0-5) /HPF Urine WBC (0-5) /HPF Ur Squamous Epith Cells (<= Few) Urine Bacteria (None Seen) /HPF Ur Microscopic Review Urine Culture Comments Salicylates mg/dL Urine Opiates Screen (NEGATIVE) Ur Oxycodone Screen (NEGATIVE) Urine Methadone Screen (NEGATIVE) Ur Propoxyphene Screen (NEGATIVE) Acetaminophen (10-30) ug/mL Ur Barbiturates Screen (NEGATIVE) Ur Tricyclics Screen (NEGATIVE) Ur Phencyclidine Scrn (NEGATIVE) Ur Amphetamine Screen (NEGATIVE) U Methamphetamines Scrn (NEGATIVE) U Benzodiazepines Scrn (NEGATIVE) Urine Cocaine Screen (NEGATIVE) U Cannabinoids Screen (NEGATIVE) 07/13/18 07/13/18 07/13/18 Range/Units 23:38 23:27 23:27 WBC 16.3 H (4.8-10.8) x10^3/uL RBC 4.97 (4.20-5.40) 10^6/uL Hgb 14.3 (12.0-16.0) g/dL Hct 45.9 (37.0-47.0) % MCV 92.4 (81.0-99.0) fL MCH 28.8 (27.0-31.0) pg MCHC 31.1 L (32.0-36.0) g/dL RDW 17.4 H (12.0-15.0) % Plt Count 383 (130-450) 10^3/uL MPV 8.2 (7.9-10.8) fL Neut # (Auto) 12.2 H (1.5-6.6) 10^3/uL Lymph # (Auto) 3.1 (1.5-3.5) 10^3/uL [place] # (Auto) 0.8 (0.0-1.0) 10^3/uL Eos # (Auto) 0.0 (0.0-0.7) 10^3/uL Baso # (Auto) 0.2 H (0.0-0.1) 10^3/uL Absolute Nucleated RBC 0.01 x10^3/uL Nucleated RBC % 0.1 /100WBC PT (9.9-12.6) secs INR (0.8-1.2) APTT (24.9-33.3) secs Sodium 139 (135-145) mmol/L Potassium 3.2 L (3.5-5.0) mmol/L Chloride 103 (101-111) mmol/L Carbon Dioxide 11 L* (21-32) mmol/L Anion Gap 25.0 H (6-13) BUN 14 (6-20) mg/dL Creatinine 0.8 (0.4-1.0) mg/dL Estimated GFR (MDRD) 70 L (>89) Glucose 197 H (70-100) mg/dL POC Whole Bld Glucose 174 H (70 - 100) mg/dL Lactic Acid (0.5-2.2) mmol/L Calcium 9.6 (8.5-10.3) mg/dL Total Bilirubin 0.7 (0.2-1.0) mg/dL AST 47 H (10-42) IU/L ALT 28 (10-60) IU/L Alkaline Phosphatase 101 (42-121) IU/L Troponin I (<0.49) ng/mL Total Protein 8.6 H (6.7-8.2) g/dL Albumin 4.7 (3.2-5.5) g/dL Globulin 3.9 (2.1-4.2) g/dL Albumin/Globulin Ratio 1.2 (1.0-2.2) Lipase 28 (22-51) U/L TSH (0.34-5.60) uIU/mL Urine Color Urine Clarity (CLEAR) Urine pH (5.0-7.5) PH Ur Specific [place] (1.002-1.030) Urine Protein (NEGATIVE) mg/dL Urine Glucose (UA) (NEGATIVE) mg/dL Urine Ketones (NEGATIVE) mg/dL Urine Occult Blood (NEGATIVE) Urine Nitrite (NEGATIVE) Urine Bilirubin (NEGATIVE) Urine Urobilinogen (NORMAL) E.U./dL Ur Leukocyte Esterase (NEGATIVE) Urine RBC (0-5) /HPF Urine WBC (0-5) /HPF Ur Squamous Epith Cells (<= Few) Urine Bacteria (None Seen) /HPF Ur Microscopic Review Urine Culture Comments Salicylates mg/dL Urine Opiates Screen (NEGATIVE) Ur Oxycodone Screen (NEGATIVE) Urine Methadone Screen (NEGATIVE) Ur Propoxyphene Screen (NEGATIVE) Acetaminophen (10-30) ug/mL Ur Barbiturates Screen (NEGATIVE) Ur Tricyclics Screen (NEGATIVE) Ur Phencyclidine Scrn (NEGATIVE) Ur Amphetamine Screen (NEGATIVE) U Methamphetamines Scrn (NEGATIVE) U Benzodiazepines Scrn (NEGATIVE) Urine Cocaine Screen (NEGATIVE) U Cannabinoids Screen (NEGATIVE) ABX Reporting Has patient been on IV antibiotics over the past 48 hours?: Yes Sepsis Event Note (H) - Evaluation Current Stage of Sepsis: Sepsis Possible source of Sepsis: positive: Genitourinary - Sepsis Criteria Sepsis Criteria: Suspected or Documented, WBC count greater than 12,000 or less than 4000 Assessment/Plan - Problem List (1) Pyelonephritis Impression: 07/14 pt's WBC is going down 12 from 16. pt report she feel better continue Rocephin Blood cultures pending UA culture is pending (2) Seizure Conclusion/Plan: 07/14 stable/no seizure. questionable about pt's seizure. pt report she is aware when she has seizure MRI will have on Sunday EEG may have out patient No anti-epileptic medication currently, per neurologist recommend in ER'a consult However should patient seize again, maybe administer Keppra 750mg IV bid patient is not to drive for 6 months. (3) Coronary artery disease Conclusion/Plan: 07/14 stable, reconcile home meds Brilinda s/p PCI with stent in February 2018 Ob brilinta 90mg po bid (4) Hypothyroidism Conclusion/Plan: TSH was within normal level Resume Synthroid once verified (5) Hyperlipidemia Conclusion/Plan: On atorvastatin (6) Hypertension Conclusion/Plan: On losartan and metoprolol (7) Depression Conclusion/Plan: On sertraline
[2018-07-14] MEDS ORDERED: LORazepam 2 MG/ML VIAL IVP PRN (18:31)
[2018-07-14] MEDS: ATORVASTATIN 40 MG TABLET PO SCH (20:13)
[2018-07-15] MEDS: SODIUM CHLORIDE 0.9% 1,000 ML IV SCH (00:10)
[2018-07-15] MEDS: SODIUM CHLORIDE FLUSH 0.9% 10 ML SYRINGE IVP SCH ×3 (00:16→16:22)
[2018-07-15] MEDS: PROCHLORPERAZINE 10 MG/2 ML VIAL IVP PRN (00:16)
[2018-07-15] MEDS: cefTRIAXone 2 GM in SODIUM CHLORIDE 0.9% MINIBAG 100 ML IV SCH (04:05)
[2018-07-15 05:46] LABS: BASOPHILS # (AUTO) 0.1 10^3/uL (0.0-0.1); BASOPHILS % (AUTO) 0.7 %; EOSINOPHILS % (AUTO) 0.5 %; HGB - HEMOGLOBIN 12.9 g/dL (12.0-16.0); LYMPHOCYTES # (AUTO) 1.1 10^3/uL (1.5-3.5); LYMPHOCYTES % (AUTO) 10.4 %; MEAN CORPUSCULAR HEMOGLOBIN 28.9 pg (27.0-31.0); MEAN CORPUSCULAR HGB CONC 32.4 g/dL (32.0-36.0); MEAN CORPUSCULAR VOLUME 89.5 fL (81.0-99.0); MEAN PLATELET VOLUME 7.7 fL (7.9-10.8); MONOCYTES # (AUTO) 0.7 10^3/uL (0.0-1.0); MONOCYTES % (AUTO) 6.7 %; NEUTROPHILS # (AUTO) 8.6 10^3/uL (1.5-6.6); NEUTROPHILS % (AUTO) 81.7 %; PLT - PLATELET COUNT 283 10^3/uL (130-450); RED BLOOD COUNT 4.45 10^6/uL (4.20-5.40); RED CELL DISTRIBUTION WIDTH 17.3 % (12.0-15.0); WHITE BLOOD COUNT 10.5 x10^3/uL (4.8-10.8)
[2018-07-15 05:56] LABS: CALCIUM 8.6 mg/dL (8.5-10.3); CREATININE 0.6 mg/dL (0.4-1.0)
[2018-07-15] MEDS: PHENAZOPYRIDINE 100 MG TABLET PO SCH ×3 (06:13→20:20)
[2018-07-15] MEDS: LEVOTHYROXINE 125 MCG TABLET PO SCH (07:50)
[2018-07-15] MEDS: SERTRALINE 50 MG TABLET PO SCH (08:06)
[2018-07-15] MEDS: LOSARTAN 50 MG TABLET PO SCH (08:07)
[2018-07-15] MEDS: POLYETHYLENE GLYCOL 3350 17 GM PACKET PO SCH (08:08)
[2018-07-15] MEDS: ASPIRIN CHEW 81 MG TABLET PO SCH (08:08)
[2018-07-15] MEDS: METOPROLOL TARTRATE 25 MG TABLET PO SCH ×2 (08:08→20:20)
[2018-07-15] MEDS: OXYBUTYNIN 5MG TABLET PO SCH ×2 (08:08→20:23)
[2018-07-15] MEDS: TICAGRELOR 90 MG PO SCH ×2 (08:08→20:30)
[2018-07-15] MEDS: ACETAMINOPHEN 325 MG TABLET PO PRN ×2 (13:41→17:13)
--- NOTE | 2018-07-15 14:12 | PROVIDER PROGRESS NOTE ---
Subjective - Prog Note Date Prog Note Date: 07/15/18 Prog Note Time: 14:09 - Subjective Pt reports feeling: Improved Subjective: Louise complains of right greater than left flank pain related to her acute infection. She denies headaches, chest pain, pressure, heart burn, vomiting, diarrhea, a new rash or increased shortness of breath. Current Medications - Current Medications Current Medications: Active Medications: Acetaminophen (Tylenol) 650 mg PO Q4HR PRN Acetaminophen (Tylenol) 1,000 mg PO Q6H [facility] Aspirin (St Adolfo Aspirin) 81 mg PO DAILY [facility] Atorvastatin Calcium (Lipitor) 40 mg PO QPM [facility] Ceftriaxone Sodium 2 gm/ (Sodium Chloride) 100 mls @ 200 mls/hr IV Q24H [facility] Promethazine HCl 25 mg/ Sodium (Chloride) 51 mls @ 100 mls/hr IV Q6H PRN Levothyroxine Sodium (Synthroid) 125 mcg PO QDAC [facility] Lorazepam (Ativan Inj (Vial)) 2 mg IVP Q2H PRN Losartan Potassium (Cozaar) 25 mg PO DAILY [facility] Metoprolol Tartrate (Lopressor) 25 mg PO BID [facility] Non-Formulary Medication (Ticagrelor [Brilinta]) 90 mg PO BID [facility] Ondansetron HCl (Zofran Inj) 4 mg IVP Q6HR PRN Oxybutynin Chloride (Ditropan) 5 mg PO BID [facility] Oxycodone HCl (Roxicodone) 5 mg PO Q4HR PRN Phenazopyridine HCl (Pyridium) 100 mg PO TID [facility] Polyethylene Glycol (Miralax) 17 gm PO DAILY [facility] Prochlorperazine Edisylate (Compazine Inj) 10 mg IVP Q4HR PRN Senna (Senokot) 8.6 - 17.2 mg PO DAILY [facility] Sertraline HCl (Zoloft) 100 mg PO DAILY [facility] Sodium Chloride ([place]) 2 sprays RUBEN Q4HR PRN HOME meds: Aspirin [Children's Aspirin] 81 mg PO DAILY 07/14/18 Atorvastatin Calcium 40 mg PO QPM 07/14/18 Cyanocobalamin (Vitamin B-12) [Vitamin B-12] 1 tab PO DAILY 07/14/18 Garlic 580 mg PO DAILY 07/14/18 Levothyroxine Sodium 125 mcg PO QDAC 07/14/18 Losartan Potassium 25 mg PO DAILY 07/14/18 Metoprolol Tartrate 25 mg PO BID 07/14/18 Oxybutynin [Ditropan] 5 mg PO BID 07/14/18 Pantoprazole Sodium [Protonix] 40 mg PO QDAC 07/14/18 Sertraline HCl 100 mg PO DAILY 07/14/18 Ticagrelor [Brilinta] 90 mg PO BID 07/14/18 Objective - Vital Signs/Intake & Output Reviewed Vital Signs: Yes Vital Signs: Vital Signs x48h Temp Pulse Resp BP BP Pulse Ox 07/15/18 12:30 36.7 C 88 14 172/90 H 97 07/15/18 08:49 37.0 C 88 14 181/92 H 95 07/15/18 08:08 181/92 H Intake & Output: Intake & Output 07/12/18 07/13/18 07/14/18 07/15/18 23:59 23:59 23:59 23:59 Intake Total 2821.000 2307.000 Output Total 2925 2250 Balance -104.000 57.000 - Objective General Appearance: positive: No acute distress, Alert, Lethargic Eyes Bilateral: positive: PERRL ENT: positive: Pharynx nml, Dry mucous membranes Neck: positive: No JVD, Trachea midline Respiratory: positive: Chest non-tender, No respiratory distress, Other (Bilateral crackles) Cardiovascular: positive: No gallop, Irregularly irregular, Systolic murmur Peripheral Pulses: 1+ Radial (R), 1+ Radial (L) Abdomen: positive: Non-tender, Nml bowel sounds, Hepatomegaly, Other (rounded, full, soft) Back: positive: CVA tenderness (R) (right greater than left), CVA tenderness (L) Extremities: positive: Non-tender, Full ROM, Nml appearance, No pedal edema Neurologic/Psychiatric: positive: Oriented x3, CN's nml (2-12), Motor nml, Sensation nml, Mood/affect nml Reflexes: Bicep (R): 4+, Bicep (L): 4+ - Lab Results Fish Bones: 07/16/18 05:44 07/16/18 05:44 Other Labs: Lab Results x24hrs 07/15/18 07/15/18 Range/Units 05:40 05:40 WBC 10.5 (4.8-10.8) x10^3/uL RBC 4.45 (4.20-5.40) 10^6/uL Hgb 12.9 (12.0-16.0) g/dL Hct 39.9 (37.0-47.0) % MCV 89.5 (81.0-99.0) fL MCH 28.9 (27.0-31.0) pg MCHC 32.4 (32.0-36.0) g/dL RDW 17.3 H (12.0-15.0) % Plt Count 283 (130-450) 10^3/uL MPV 7.7 L (7.9-10.8) fL Neut # (Auto) 8.6 H (1.5-6.6) 10^3/uL Lymph # (Auto) 1.1 L (1.5-3.5) 10^3/uL [place] # (Auto) 0.7 (0.0-1.0) 10^3/uL Eos # (Auto) 0.0 (0.0-0.7) 10^3/uL Baso # (Auto) 0.1 (0.0-0.1) 10^3/uL Absolute Nucleated RBC 0.00 x10^3/uL Nucleated RBC % 0.0 /100WBC Sodium 137 (135-145) mmol/L Potassium 3.6 (3.5-5.0) mmol/L Chloride 104 (101-111) mmol/L Carbon Dioxide 23 (21-32) mmol/L Anion Gap 10.0 (6-13) BUN 9 (6-20) mg/dL Creatinine 0.6 (0.4-1.0) mg/dL Estimated GFR (MDRD) 98 (>89) Glucose 119 H (70-100) mg/dL Calcium 8.6 (8.5-10.3) mg/dL ABX Reporting Has patient been on IV antibiotics over the past 48 hours?: Yes Sepsis Event Note (H) - Evaluation Current Stage of Sepsis: Ruled out Possible source of Sepsis: positive: Genitourinary Assessment/Plan - Problem List (1) Pyelonephritis Impression: - Ongoing flank pain - No gross hematuria - + nitrites in preliminary UA, culture is pending - Imaging shows chronic kidney stones Plan: Continue to treat with IV Rocephin, await final cultures, schedule tylenol x 48 hours (2) ENRIQUE on CPAP Impression: - Not oxygen dependent - States she is compliant with home use - Son is supposed to deliver her home unit tonight Plan: Continue to use at night, if not delivered use oxygen per nasal cannula (3) Bilateral flank pain Impression: - History of kidney stones - Tenderness on exam right greater than left Plan: Continue treatment for pyelonephritis, schedule a few doses of tylenol (4) Hypertension Impression: - More elevated today with systolic 170's - Continues on ARB, BB - Ordered echo for the AM - No new treatment since B/P less since stopping IV fluids Plan: Await echo results, monitor for worsening Qualifiers: Hypertension type: essential hypertension Qualified Code(s): I10 - Essential (primary) hypertension (5) Recurrent UTI (urinary tract infection) Impression: - Baseline urinary disorders - Recent botox to control s/s - Several UTIs in the past few years Plan: Continue to treat acute infection, remove castillo in the AM (6) Urinary bladder incontinence Impression: - Botox injection was on 07/02/2018 - Patient thinks she got an increased dose - Fresh dark bleeding post procedure from 07/02/2018 - Now has an indwelling castillo Plan: Continue indwelling castillo for today, consider removal tomorrow (7) Myocardial infarction greater than 8 weeks ago Impression: - Patient admits to this in February 2018 - Status post 1 coronary stent in an unknown region - Med review shows appropriate treatment including Brilinta Plan: Continue home medications, monitor vital signs and for symptoms (8) Focal motor seizure Impression: - With retained awareness
--- NOTE | 2018-07-15 14:39 | MRI Report ---
Reason: new onset seizure Procedure Date: 07/15/2018 Accession Number: [id number] / [id number] Procedure: MRI - Brain W/O CPT Code: FULL RESULT: EXAM: MRI BRAIN WITHOUT CONTRAST EXAM DATE: 07/15/2018 12:25 PM. CLINICAL HISTORY: New onset seizure. COMPARISON: Prior CT head 07/14/2018. TECHNIQUE: Multiplanar, multisequence T1-weighted and fluid-sensitive MR sequences of the brain were performed. Sequences optimized for routine evaluation. Other: None. IV Contrast: None. Findings: Relevant images are indicated (image number, series number). There is no acute/subacute ischemic change in the brain. There is no hemosiderin deposition present in the brain. Multifocal areas of juxtacortical white matter disease including right parietal, right occipital, bilateral cerebellar lobes with superimposed mild scattered periventricular, left pontine white matter disease present. The pattern is unusual. Normally expected vascular flow voids of the major arteries/veins. Orbital contents negative. Paranasal sinuses, mastoid air cells demonstrate no significant fluid signal. There are normal expected vascular flow voids of the major arteries/veins. Limited suprahyoid neck negative. Pituitary, midbrain, craniocervical junction, limited upper cervical cord negative. Bilateral hippocampus, parahippocampal gyrus negative. Impressions: 1. No acute/subacute ischemic change. 2. Multifocal areas of unusual white matter signal change including bilateral cerebellum, right parietal, right occipital lobes, could be related to acute disseminated encephalomyelitis, other prior infectious/inflammatory process. The patient reportedly has a history of Lyme disease. No prior MRI brain imaging is available for comparison. Recommend postcontrast MRI brain imaging if possible for further evaluation. Correlate closely with the patient's neurological status, and clinical history/exposures. 3. No midline shift or herniation, no ventricular trapping. 4. Superimposed mild scattered typical white matter disease may be related to chronic small vessel ischemic disease. [facility] The call report notification system was initiated by Dr. Shay Henry at 02:36 PM on 07/15/2018. The above call report findings were discussed with nurse stephanie Her by Dr. Shay Henry at 02:36 PM on 07/15/2018.
[2018-07-15] MEDS ORDERED: SODIUM CHLORIDE 0.65% NASAL SPRAY NAS PRN (14:48)
[2018-07-15] MEDS ORDERED: diazePAM 5 MG TABLET PO SCH (14:48)
[2018-07-15] MEDS: SENNA 8.6 MG TABLET PO SCH (17:13)
[2018-07-15] MEDS ORDERED: GADOBUTROL 7.5 MMOL/7.5 ML VIAL IVP ONE (17:38)
--- NOTE | 2018-07-15 18:01 | MRI Report ---
Reason: evaluate for ADEM Procedure Date: 07/15/2018 Accession Number: [id number] / [id number] Procedure: MRI - Brain W/WO CPT Code: FULL RESULT: EXAM: MRI BRAIN WITHOUT CONTRAST EXAM DATE: 07/15/2018 12:25 PM. CLINICAL HISTORY: New onset seizure. COMPARISON: Prior CT head 07/14/2018. TECHNIQUE: Multiplanar, multisequence T1-weighted and fluid-sensitive MR sequences of the brain were performed. Sequences optimized for routine evaluation. Other: None. IV Contrast: None. Findings: Relevant images are indicated (image number, series number). There is no acute/subacute ischemic change in the brain. There is no hemosiderin deposition present in the brain. Multifocal areas of juxtacortical white matter disease including right parietal, right occipital, bilateral cerebellar lobes with superimposed mild scattered periventricular, left pontine white matter disease present. The pattern is unusual. Normally expected vascular flow voids of the major arteries/veins. Orbital contents negative. Paranasal sinuses, mastoid air cells demonstrate no significant fluid signal. There are normal expected vascular flow voids of the major arteries/veins. Limited suprahyoid neck negative. Pituitary, midbrain, craniocervical junction, limited upper cervical cord negative. Bilateral hippocampus, parahippocampal gyrus negative. Impressions: 1. No acute/subacute ischemic change. 2. Multifocal areas of unusual white matter signal change including bilateral cerebellum, right parietal, right occipital lobes, could be related to acute disseminated encephalomyelitis, other prior infectious/inflammatory process. The patient reportedly has a history of Lyme disease. No prior MRI brain imaging is available for comparison. Recommend postcontrast MRI brain imaging if possible for further evaluation. Correlate closely with the patient's neurological status, and clinical history/exposures. 3. No midline shift or herniation, no ventricular trapping. 4. Superimposed mild scattered typical white matter disease may be related to chronic small vessel ischemic disease. RADIA The call report notification system was initiated by Dr. Shay Henry at 02:36 PM on 07/15/2018. The above call report findings were discussed with nurse stephanie Her by Dr. Shay Henry at 02:36 PM on 07/15/2018.
[2018-07-15] MEDS ORDERED: ACETAMINOPHEN 500 MG TABLET PO SCH (19:00)
[2018-07-15] MEDS: ATORVASTATIN 40 MG TABLET PO SCH (20:22)
[2018-07-16] MEDS: SODIUM CHLORIDE FLUSH 0.9% 10 ML SYRINGE IVP SCH ×3 (00:43→16:57)
[2018-07-16] MEDS ORDERED: ACETAMINOPHEN 500 MG TABLET PO SCH (02:00)
[2018-07-16] MEDS: cefTRIAXone 2 GM in SODIUM CHLORIDE 0.9% MINIBAG 100 ML IV SCH (03:56)
[2018-07-16] MEDS: SODIUM CHLORIDE FLUSH 0.9% 10 ML SYRINGE IVP PRN ×2 (03:57→10:27)
[2018-07-16 06:00] LABS: BASOPHILS # (AUTO) 0.1 10^3/uL (0.0-0.1); BASOPHILS % (AUTO) 1.1 %; EOSINOPHILS # (AUTO) 0.1 10^3/uL (0.0-0.7); EOSINOPHILS % (AUTO) 0.7 %; HGB - HEMOGLOBIN 14.3 g/dL (12.0-16.0); LYMPHOCYTES # (AUTO) 1.6 10^3/uL (1.5-3.5); LYMPHOCYTES % (AUTO) 16.9 %; MEAN CORPUSCULAR HEMOGLOBIN 28.9 pg (27.0-31.0); MEAN CORPUSCULAR HGB CONC 33.1 g/dL (32.0-36.0); MEAN CORPUSCULAR VOLUME 87.1 fL (81.0-99.0); MEAN PLATELET VOLUME 7.7 fL (7.9-10.8); MONOCYTES # (AUTO) 0.8 10^3/uL (0.0-1.0); MONOCYTES % (AUTO) 8.7 %; NEUTROPHILS % (AUTO) 72.6 %; PLT - PLATELET COUNT 312 10^3/uL (130-450); RED BLOOD COUNT 4.95 10^6/uL (4.20-5.40); RED CELL DISTRIBUTION WIDTH 17.3 % (12.0-15.0); WHITE BLOOD COUNT 9.7 x10^3/uL (4.8-10.8)
[2018-07-16] MEDS: PHENAZOPYRIDINE 100 MG TABLET PO SCH ×3 (06:00→21:27)
[2018-07-16 06:04] LABS: CALCIUM 9.1 mg/dL (8.5-10.3); CREATININE 0.8 mg/dL (0.4-1.0)
[2018-07-16] MEDS ORDERED: LEVOTHYROXINE 125 MCG TABLET PO SCH (07:00)
[2018-07-16] MEDS: LOSARTAN 50 MG TABLET PO SCH (08:29)
[2018-07-16] MEDS: ASPIRIN CHEW 81 MG TABLET PO SCH (08:30)
[2018-07-16] MEDS: OXYBUTYNIN 5MG TABLET PO SCH ×2 (08:30→21:27)
[2018-07-16] MEDS: METOPROLOL TARTRATE 25 MG TABLET PO SCH (08:31)
[2018-07-16] MEDS: SENNA 8.6 MG TABLET PO SCH (08:32)
[2018-07-16] MEDS: SERTRALINE 50 MG TABLET PO SCH (08:32)
[2018-07-16] MEDS: POLYETHYLENE GLYCOL 3350 17 GM PACKET PO SCH (08:32)
[2018-07-16] MEDS: TICAGRELOR 90 MG PO SCH ×2 (08:33→21:27)
[2018-07-16] MEDS: ACETAMINOPHEN 325 MG TABLET PO PRN ×3 (08:40→21:27)
[2018-07-16] MEDS: PROCHLORPERAZINE 10 MG/2 ML VIAL IVP PRN (10:26)
[2018-07-16] MEDS ORDERED: SODIUM CHLORIDE FLUSH 0.9% 10 ML SYRINGE ONE (10:30)
--- NOTE | 2018-07-16 11:44 | PROVIDER PROGRESS NOTE ---
Subjective - Prog Note Date Prog Note Date: 07/16/18 Prog Note Time: 11:44 - Subjective Pt reports feeling: No change Subjective: Louise complains of worsening right flank pain. She denies headache, chest pain, a new cough, nausea, vomiting, diarrhea, or a new rash. Current Medications - Current Medications Current Medications: Active Medications: Acetaminophen (Tylenol) 650 mg PO Q4HR PRN Acetaminophen (Tylenol) 1,000 mg PO Q6H BESS Aspirin (St Adolfo Aspirin) 81 mg PO DAILY BESS Atorvastatin Calcium (Lipitor) 40 mg PO QPM BESS Cyclobenzaprine HCl (Flexeril) 5 mg PO TID PRN Ceftriaxone Sodium 2 gm/ (Sodium Chloride) 100 mls @ 200 mls/hr IV Q24H BESS Promethazine HCl 25 mg/ Sodium (Chloride) 51 mls @ 100 mls/hr IV Q6H PRN Levothyroxine Sodium (Synthroid) 125 mcg PO QDAC BESS Lorazepam (Ativan Inj (Vial) 2 mg IVP Q2H PRN Losartan Potassium (Cozaar) 25 mg PO DAILY BESS Magnesium Hydroxide (Milk Of Magnesia) 2,400 - 4,800 mg PO ONCE BESS Metoprolol Succinate (Toprol Xl) 50 mg PO BIDWM [facility] Non-Formulary Medication (Ticagrelor [Brilinta]) 90 mg PO BID BESS Ondansetron HCl (Zofran Inj) 4 mg IVP Q6HR PRN Oxybutynin Chloride (Ditropan) 5 mg PO BID BESS Oxycodone HCl (Roxicodone) 5 mg PO Q4HR PRN Phenazopyridine HCl (Pyridium) 100 mg PO TID BESS Polyethylene Glycol (Miralax) 17 gm PO DAILY BESS Prochlorperazine Edisylate (Compazine Inj) 10 mg IVP Q4HR PRN Senna (Senokot) 8.6 - 17.2 mg PO DAILY BESS Sertraline HCl (Zoloft) 100 mg PO DAILY BESS Sodium Chloride (Duncan) 2 sprays RUBEN Q4HR PRN HOME meds: Aspirin [Children's Aspirin] 81 mg PO DAILY 07/14/18 Atorvastatin Calcium 40 mg PO QPM 07/14/18 Cyanocobalamin (Vitamin B-12) [Vitamin B-12] 1 tab PO DAILY 07/14/18 Garlic 580 mg PO DAILY 07/14/18 Levothyroxine Sodium 125 mcg PO QDAC 07/14/18 Losartan Potassium 25 mg PO DAILY 07/14/18 Metoprolol Tartrate 25 mg PO BID 07/14/18 Oxybutynin [Ditropan] 5 mg PO BID 07/14/18 Pantoprazole Sodium [Protonix] 40 mg PO QDAC 07/14/18 Sertraline HCl 100 mg PO DAILY 07/14/18 Ticagrelor [Brilinta] 90 mg PO BID 07/14/18 Objective - Vital Signs/Intake & Output Reviewed Vital Signs: Yes Vital Signs: Vital Signs x48h Temp Pulse Resp BP BP Pulse Ox 07/16/18 08:31 177/81 H 07/16/18 08:07 36.7 C 80 16 177/88 H 93 Intake & Output: Intake & Output 07/13/18 07/14/18 07/15/18 07/16/18 23:59 23:59 23:59 23:59 Intake Total 2821.000 2547.000 590 Output Total 2925 2925 400 Balance -104.000 -378.000 190 - Objective General Appearance: positive: Alert, Mild distress, Moderate distress Eyes Bilateral: positive: PERRL ENT: positive: Pharynx nml, No signs of dehydration Neck: positive: Thyroid nml, No JVD, Trachea midline Respiratory: positive: Chest non-tender, No respiratory distress, Breath sounds nml Cardiovascular: positive: Regular rate & rhythm, No gallop, Systolic murmur Peripheral Pulses: 1+ Radial (R), 1+ Radial (L) Abdomen: positive: Non-tender, Nml bowel sounds, Other (rounded, soft) Back: positive: Nml inspection, CVA tenderness (R) Skin: positive: Color nml, No rash, Warm, Dry Extremities: positive: Non-tender, Full ROM, Nml appearance, No pedal edema Neurologic/Psychiatric: positive: Oriented x3, CN's nml (2-12), Motor nml, Sensation nml, Mood/affect nml Reflexes: Bicep (R): 2+, Bicep (L): 2+ - Lab Results Fish Bones: 07/16/18 05:44 07/16/18 05:44 Other Labs: Lab Results x24hrs 07/16/18 07/16/18 Range/Units 05:44 05:44 WBC 9.7 (4.8-10.8) x10^3/uL RBC 4.95 (4.20-5.40) 10^6/uL Hgb 14.3 (12.0-16.0) g/dL Hct 43.1 (37.0-47.0) % MCV 87.1 (81.0-99.0) fL MCH 28.9 (27.0-31.0) pg MCHC 33.1 (32.0-36.0) g/dL RDW 17.3 H (12.0-15.0) % Plt Count 312 (130-450) 10^3/uL MPV 7.7 L (7.9-10.8) fL Neut # (Auto) 7.0 H (1.5-6.6) 10^3/uL Lymph # (Auto) 1.6 (1.5-3.5) 10^3/uL Luce # (Auto) 0.8 (0.0-1.0) 10^3/uL Eos # (Auto) 0.1 (0.0-0.7) 10^3/uL Baso # (Auto) 0.1 (0.0-0.1) 10^3/uL Absolute Nucleated RBC 0.00 x10^3/uL Nucleated RBC % 0.0 /100WBC Sodium 138 (135-145) mmol/L Potassium 3.5 (3.5-5.0) mmol/L Chloride 101 (101-111) mmol/L Carbon Dioxide 26 (21-32) mmol/L Anion Gap 11.0 (6-13) BUN 13 (6-20) mg/dL Creatinine 0.8 (0.4-1.0) mg/dL Estimated GFR (MDRD) 70 L (>89) Glucose 115 H (70-100) mg/dL Calcium 9.1 (8.5-10.3) mg/dL ABX Reporting Has patient been on IV antibiotics over the past 48 hours?: Yes Sepsis Event Note (H) - Evaluation Current Stage of Sepsis: Ruled out Possible source of Sepsis: positive: Genitourinary - Sepsis Criteria Sepsis Criteria: Suspected or Documented, WBC count greater than 12,000 or less than 4000 Assessment/Plan - Problem List (1) Pyelonephritis Impression: - Ongoing flank pain - No gross hematuria - + nitrites in preliminary UA, culture is pending - Imaging shows chronic kidney stones Plan: Continue to treat with IV Rocephin, await final cultures, schedule tylenol x 48 hours (2) ENRIQUE on CPAP Impression: - Not oxygen dependent - States she is compliant with home use Plan: Continue to use at night, if not delivered use oxygen per nasal cannula (3) Ventricular diastolic dysfunction determined by echocardiography Impression: - Preliminary echo shows no definite LVH - Grade 1 diastolic dysfunction noted - EF 65-70% Plan: Continue medical management with BB, and ARB (4) Bilateral flank pain Impression: - History of kidney stones - Tenderness on exam right greater than left - This continues today, with the same severity as compared to admission - Flexeril, and encourage position changes - If kidney US shows no changes, may consider starting Flomax Plan: Continue treatment for pyelonephritis, continue scheduled tylenol, obtain kidney US (5) Hypertension Impression: - Continues to have higher B/P readings; systolic 170's - Continues on ARB Plan: Continue metoprolol succinate at increased dosing Qualifiers: Hypertension type: essential hypertension Qualified Code(s): I10 - Essential (primary) hypertension (6) Recurrent UTI (urinary tract infection) Impression: - Baseline urinary disorders - Recent botox to control s/s - Several UTIs in the past few years Plan: Continue to treat acute infection, remove castillo today (7) Urinary bladder incontinence Impression: - Botox injection was last on 07/02/2018 - Patient thinks she got an increased dose - Fresh dark bleeding post procedure from 07/02/2018 - Now has an indwelling castillo Plan: Continue indwelling castillo for today, consider removal tomorrow (8) Myocardial infarction greater than 8 weeks ago Impression: - Patient admits to this in February 2018 - Status post 1 coronary stent in an unknown region - Med review shows appropriate treatment including Brilinta Plan: Continue home medications, monitor vital signs and for symptoms (9) Focal motor seizure Impression: - With retained awareness - Head imaging, including MRI is inconclusive, and more neuro-work up is recommended - No driving until the patient sees neurology for a possible EEG, further imaging etc. - These episodes seem to be an exacerbation of her illness, rigors Plan: Continue seizure precautions, monitor for recurrence
[2018-07-16] MEDS: CYCLOBENZAPRINE 10 MG TABLET PO PRN ×3 (12:06→21:26)
[2018-07-16] MEDS ORDERED: MAGNESIUM HYDROXIDE 2,400 MG/30 ML UDC PO SCH (14:05)
[2018-07-16] MEDS ORDERED: METOPROLOL SUCCINATE 50 MG TABLET PO SCH (17:00)
--- NOTE | 2018-07-16 18:45 | Ultrasound Report ---
Reason: ongoing right flank pain, pyelonephritis Procedure Date: 07/16/2018 Accession Number: [id number] / [id number] Procedure: US - Retroperitoneal CPT Code: FULL RESULT: EXAM: RENAL ULTRASOUND EXAM DATE: 07/16/2018 04:52 PM. CLINICAL HISTORY: Ongoing right flank pain, pyelonephritis. COMPARISON: ABDOMEN/PELVIS W/O 07/14/2018 12:27 AM. TECHNIQUE: Real-time scanning was performed with static images obtained. FINDINGS: Right Kidney: 10.7 x 6.0 x 5.8 cm. Normal echotexture with no stones, contour-deforming masses, or significant hydronephrosis. Left Kidney: 11.4 x 4.7 x 6.0 cm. Normal echotexture with no stones, contour-deforming masses, or significant hydronephrosis. Bladder: Bladder catheter in place. Other: None. IMPRESSION: The kidneys demonstrate no evidence of hydronephrosis. RAD[facility]
[2018-07-16] MEDS: ACETAMINOPHEN 500 MG TABLET PO SCH (19:43)
[2018-07-16] MEDS: ATORVASTATIN 40 MG TABLET PO SCH (21:27)
[2018-07-17] MEDS ORDERED: SODIUM CHLORIDE 0.9% 1,000 ML IV ONE (01:26)
--- NOTE | 2018-07-17 01:29 | CT Report ---
Reason: sudden LOC dilated pupils Procedure Date: 07/17/2018 Accession Number: [id number] / [id number] Procedure: CT - Head W/O Stroke Protocol CPT Code: FULL RESULT: EXAM: CT HEAD EXAM DATE: 07/17/2018 01:03 AM. CLINICAL HISTORY: 73-year-old female with sudden loss of consciousness and dilated pupils. COMPARISON: CT head 07/14/2018.. TECHNIQUE: Multiaxial CT images were obtained from the foramen magnum to the vertex. Reformats: Sagittal and coronal. IV contrast: None. In accordance with CT protocol optimization, one or more of the following dose reduction techniques were utilized for this exam: automated exposure control, adjustment of mA and/or KV based on patient size, or use of iterative reconstructive technique. FINDINGS: There is an acute parenchymal hemorrhage involving the right parietal and occipital lobes measuring 5.8 x 3.7 x 5.6 cm (AP by TR by CC). Approximate hematoma volume is 60 cc. There is mild to moderate surrounding edema. There is also an acute subdural hematoma adjacent to the right frontal, parietal, and lateral temporal lobes. This measures up to 12-13 mm in thickness adjacent to the lateral right frontal lobe. Thin layer of subdural blood also extends along the interhemispheric fissure. A hematocrit level is noted within the subdural hematoma suggesting hyperacute age. There is also scattered subarachnoid hemorrhage in the sulci over the right cerebral convexity. There is significant mass-effect upon the right cerebral hemisphere resulting in subfalcine herniation with 1.9 cm of leftward shift in midline structures. In addition, the basal cisterns are completely effaced. There appears to be uncal herniation with deformity of the midbrain. There is also a small 7 mm hemorrhage in the dorsal aspect of the midbrain on the left. The left lateral ventricle is mildly dilated compatible with early ventricular trapping. Calvarium and skull base are intact. Visualized sinuses and mastoid air cells are clear. IMPRESSION: 1. There is a large acute parenchymal hematoma involving the right parietal and occipital lobes measuring approximately 5.8 x 3.7 x 5.6 cm (approximate hematoma volume is 60 cc). There is mild to moderate surrounding edema. 2. There is also an acute/hyperacute right-sided holohemispheric subdural hematoma measuring up to 12-13 mm in thickness adjacent to the lateral right frontal lobe. There is also a small volume of scattered subarachnoid hemorrhage over the right frontal lobe convexity. 3. There is significant mass-effect resulting in subfalcine herniation with 19 mm of leftward shift in midline structures. There is complete effacement of the basal cisterns. There is uncal herniation with deformity of the midbrain. This is also associated with a 7 mm acute hemorrhage in the dorsal mid brain to the left of midline. 4. Mild dilatation of the left lateral ventricle compatible with early ventricular trapping. RADIA The above critical test findings were discussed with [place] by Dr. Roldan Alonzo at 01:27 AM on 07/17/2018.
[2018-07-17] MEDS ORDERED: SODIUM CHLORIDE FLUSH 0.9% 10 ML SYRINGE ONE (01:34)
[2018-07-17 01:42] LABS: ABG HCO3 28.3 mmol/L (22.0-26.0); ABG OXYGEN SATURATION 88 % (94-98); ABG PCO2 47 mmHg (34-45); ABG PH 7.39 (7.35-7.45); ABG PO2 56 mmHg (80-100); ALLEN TEST POSITIVE
[2018-07-17] MEDS ORDERED: SUCCINYLCHOLINE 200 MG/10 ML VIAL IVP SCH (01:47)
[2018-07-17] MEDS ORDERED: ETOMIDATE 40 MG/20 ML VIAL IVP SCH (01:47)
[2018-07-17] MEDS ORDERED: MANNITOL 20% 500 ML IV SCH (01:47)
[2018-07-17] MEDS: SODIUM CHLORIDE FLUSH 0.9% 10 ML SYRINGE IVP SCH (01:50)
[2018-07-17] MEDS ORDERED: SODIUM CHLORIDE 0.9% 500 ML IV SCH (02:09)
--- NOTE | 2018-07-17 02:37 | ED Physician Documentation ---
ED Addendum - Addendum Addendum: 07/17/18 02:33 Hospitalist requested assistance with intubation. Patient reportedly has multiple intracranial bleeds that have extremely poor prognosis. Hospitalist spoke with patient's son who provided verbal consent for further interventions including intubation. Unfortunately, patient was hypoxic prior to intubation despite receiving supplemental oxygen and being on CPAP. Briefly reviewed patient's chart and lab work and felt appropriate to use RSI of etomidate 20 mg and succinylcholine 70 mg. Additional appropriate preparations were made. Patient placed on high flow oxygen to remain in place during intubation. Windsor scope/MAC 4 was used with 7.5 mm tube. Patient has poor dental hygiene and had extremely dry mouth and copious secretions in airway. Originally attempted visualization of cords with a MAC 3 blade, but transition to MAC 4 which allowed for clear visualization and placement of tube on first attempt. Color change, tube fogging, and auscultation confirmed placement. Chest x-ray ordered. Further care and sedation performed by hospitalist.
--- NOTE | 2018-07-17 02:50 | XRAY Report ---
Reason: ETT placement Procedure Date: 07/17/2018 Accession Number: [id number] / [id number] Procedure: XR - Chest 1 View X-Ray CPT Code: 47285 FULL RESULT: EXAM: CHEST RADIOGRAPHY EXAM DATE: 07/17/2018 02:44 AM. CLINICAL HISTORY: ETT placement. Stroke. COMPARISON: None. TECHNIQUE: 1 view. FINDINGS: Lungs/Pleura: Mild pulmonary vascular congestion. Mild bibasilar atelectasis. No pleural effusion. No pneumothorax. Mediastinum: Within exam limitations, heart size is upper normal. Aortic atherosclerosis. Other: Osteopenia. Endotracheal tube is 3.9 cm above the mukesh. IMPRESSION: 1. Borderline heart size with mild pulmonary vascular congestion and mild bibasilar atelectasis. 2. ETT 3.9 cm above the mukesh. RADIA
[2018-07-17] MEDS ORDERED: DOPamine 800 MG/500 ML 800 MG/500 ML BAG IV SCH (03:00)
[2018-07-17] MEDS: ACETAMINOPHEN 500 MG TABLET PO SCH ×2 (03:29→06:23)
--- NOTE | 2018-07-17 03:46 | PROVIDER PROGRESS NOTE ---
Fruit Rancher Note - Fruit Rancher Note Fruit Rancher Note: July 17, 2018 03:39 I was called to see the patient approximately 12:15. She is a white female who has a history of heart disease, has been hospitalized twice in the last few months for cardiac problems where she lives in [facility]. [place] was hospitalized for pyelonephritis. This was on July 14 when she was admitted. In the emergency room she had a neurologic event, felt to be possible seizure, CT of the head was negative. Patient is to be evaluated in the outpatient setting with neurology follow-up and EEG. She is getting ready to go home for discharge tomorrow. Nursing reports that she is ambulating with a standby assist. Had eaten dinner around 530 this evening. Last had her vital signs checked at approximately 17:26. At 11 PM she was noted to be asleep. Resting comfortably. Vital signs were going to be done at 12:15 in the morning and aide noted that the patient was unresponsive and having apneic sonorous respiration. I was asked to see the patient. 00:15 the patient is unresponsive. She has received Flexeril. This is for generalized body aches. She is unresponsive to deep sternal rub. Has no spontaneous limb movement. Pupils are fixed and dilated. Apneic sonorous respirations. Jose Coma Scale 3. Stat ABG is ordered and pH is 7.39, PCO2 47, PO2 56 and bicarb 28.3. Stroke protocol was called 00:39 CT of the head shows acute parenchymal hemorrhage involving the right parietal and occipital lobes measuring 5.8 x 3.7 x 5.6 cm. Hematoma volume 60 cc. Acute subdural hematoma adjacent to the right frontoparietal and lateral temporal lobes. Measures 12 to 13 mm in thickness adjacent to the lateral right frontal lobe. Thin layer of subdural blood extends along the interhemispheric fissure. A hematocrit level is noted within the subdural hematoma suggesting hyper acute age. Scattered subarachnoid hemorrhage in the sulci over the right cerebral convexity. Mass-effect upon the right cerebral hemispheres resulting in subfalcine herniation with 1.9 cm of leftward shift in the midline structure. Basal cisterns completely effaced. Uncal herniation with deformity of the mid brain. Small 7 mm hemorrhage in the dorsal aspect of the midbrain on the left. 00:45 I attempted to call her sister who is the person to contact. Her number is disconnected. I then called her son, Jay. I was able to explain to him the depth of her disease. The severity of illness. He initially asked that everything be done. His mom is a full code. If that meant transferring her to an outside facility to do so. I then spoke to [facility] neurology. [facility] neurology referred me to [facility] neurosurgery on-call, Dr. Mace. Dr. Mace and I spoke. On the basis of my verbal report, he felt that the patient was beyond salvage. While he would be willing to accept her in his ICU, he would not be doing surgery on a patient that was still catastrophic in her presentation. I then we spoke to her son. He wanted to come to the hospital to see his mom before he made any other decisions. 01:40 The patient is now having hypotension. Tachycardic to the 120s. I have transferred her to the ICU, and of asked emergency room physician to please electively intubate this patient. I have also started her on mannitol. 01:57 The patient has been intubated. Follow-up chest x-ray shows borderline heart size with mild pulmonary vascular congestion, and the tube is 3.9 cm above the mukesh. 02:00 I have spoken to the son. He is now been able to spend some time with his mom. He is also spoken to his brother, Garrett. He is also spoken to the patient's sister, Viridiana. I did a phone call with Aimee and Garrett. They both state that she would never want life this way. That she was already annoyed at the amount of physician intervention and hospitalization she has had in the last few months. While she did want everything done, she was in the frame of mind that she could get back her life. With this event, and my explanation of what the CAT scan looks like, and with Dr. Mace has described, they feel that they do not want anything further done. As such the patient is to remain intubated, on a mannitol drip. Garrett is going to come in and see her. We will then extubate her, and let her peacefully .I have notified [facility], the patient is not to be transferred. Into please notify Dr. Mace and thank him for his phone conversation with me.
[2018-07-17] MEDS: SODIUM CHLORIDE FLUSH 0.9% 10 ML SYRINGE IVP PRN ×2 (04:00→04:22)
[2018-07-17] MEDS: cefTRIAXone 2 GM in SODIUM CHLORIDE 0.9% MINIBAG 100 ML IV SCH (04:13)
[2018-07-17 06:02] VITALS: BP 87/50
[2018-07-17] MEDS ORDERED: PANTOPRAZOLE 40 MG VIAL IVP SCH (07:00)
--- NOTE | 2018-07-17 07:55 | DISCHARGE SUMMARY ---
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) Hypothyroidism, unspecified (E03.9) Hyperlipidemia, unspecified (E78.5) Essential (primary) hypertension (I10) Major depressive disorder, single episode, unspecified (F32.9) Discharge Diagnoses with Status of Each Condition: Tubulo-interstitial nephritis, not spcf as acute or chronic (N12) Obstructive sleep apnea (adult) (pediatric) (G47.33) Heart disease, unspecified (I51.9) Unspecified abdominal pain (R10.9) Essential (primary) hypertension (I10) Urinary tract infection, site not specified (N39.0) Unspecified urinary incontinence (R32) Old myocardial infarction (I25.2) 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 Reyes: Patient seen on 07/14/18 at 0230am. Patient is a 73 y/o female who presented to the ED with right flank pain. It started 3 days ago and has been worsening. She was seen at the [facility] on 07/13/[address] scan done which according to her did not show any stone on the right side, but showed 2 small non-obstructing on the left. She was given pyridium and prescribed an oral cephalosporin of which she has taken 2 doses. She presented to the ED because of worsening pain. In the ED she experienced an episode of tonic clonic activity concerning for a seizure. It resolved before any medication could be administered. She says she was aware through out the experience. She denies any previous history of seizures. She denied fever or chills. No chest pain or abdominal pain. She has been nauseous today and vomited at home and on the way to the hospital. She also reports a moderate headache today. In the ED, CT head was unremarkable. However her UA suggested a UTI and she had a lactic acid of 10. These labs were obtained just shortly after the seizure-like activity. At the time of my visit, she was fully awake and alert and provided a full account with no difficult. She lives in [facility]. She is here visiting her sons who live in [place]. She lived in [place] for 10 years. She drove up from [place]. She recent had an VT in February 2018 warranting PCI with stent placement. She is on brilinta 90mg po bid, and ASA daily. She will be admitted for treatment of pyelonephritis. - HOSPITAL COURSE Hospital Course: Pyelonephritis: Despite starting antibiotics, the patient continued to have jyotsna oing flank pain, no gross hematuria, nitrites in preliminary UA, culture is pending, imaging shows chronic kidney stones, but follow up kidney US did not detect any stones. She was continued on IV Rocephin, scheduled tylenol x 48 hours. ENRIQUE on CPAP: Patient was not oxygen dependent, but claimed to be compliant with the use of her home CPAP. Her son delivered her home device and has been using it for sleep. Ventricular diastolic dysfunction determined by echocardiography: Preliminary echo shows no definite LVH, Grade 1 diastolic dysfunction noted, EF 65-70%. Metoprolol succinate was added in exchange for tartrate. Bilateral flank pain: History of kidney stones, tenderness on exam right greater than left. A kidney US could not see any kidney stones. She was started on flexeril, and encourage position changes, continue treatment for pyelonephritis, continue scheduled tylenol Hypertension: Continues to have higher B/P readings; systolic 170's. She was continued on ARB, and metoprolol was changed to succinate at increased dosing. Recurrent UTI (urinary tract infection): Baseline urinary disorders, recent botox to control s/s, several UTIs in the past few years, treating acute infection, remove castillo when more stable. Urinary bladder incontinence: Botox injection was last on 07/02/2018, patient thinks she got an increased dose, fresh dark bleeding post procedure from 07/02/2018, now has an indwelling castillo Myocardial infarction greater than 8 weeks ago: Patient admits to this in February 2018, status post 1 coronary stent in an unknown region, med review shows appropriate treatment including Brilinta, and low dose ASA. Focal motor seizure: With retained awareness, head imaging, including MRI is inconclusive, and more neuro-work up is recommended outpatient, advised no driving until the patient sees neurology for a possible EEG, further imaging etc., these episodes seem to be an exacerbation of her illness, rigors Summary of events leading to as per Dr. Beach: I have re-discussed the case with her second son, Garrett, and he is in agreement with Jay. She would not want to live her life this way. They would like us to extubate her, institute comfort measures, and let her go. Currently respiratory therapy is in the OR for the case. Once respiratory is out of the OR, we will extubate the patient. I have stopped all of her IV medications, have stopped her labs, have stopped the dopamine. July 17, 2018 03:39 I was called to see the patient approximately 12:15. She is a white female who has a history of heart disease, has been hospitalized twice in the last few months for cardiac problems where she lives in [facility] was hospitalized for pyelonephritis. This was on July 14 when she was admitted. In the emergency room she had a neurologic event, felt to be possible seizure, CT of the head was negative. Patient is to be evaluated in the outpatient setting with neurology follow-up and EEG. She is getting ready to go home for discharge tomorrow. Nursing reports that she is ambulating with a standby assist. Had eaten dinner around 530 this evening. Last had her vital signs checked at approximately 17:26. At 11 PM she was noted to be asleep. Resting comfortably. Vital signs were going to be done at 12:15 in the morning and aide noted that the patient was unresponsive and having apneic sonorous respiration. I was asked to see the patient. 00:15 the patient is unresponsive. She has received Flexeril. This is for generalized body aches. She is unresponsive to deep sternal rub. Has no spontaneous limb movement. Pupils are fixed and dilated. Apneic sonorous respirations. Jose Coma Scale 3. Stat ABG is ordered and pH is 7.39, PCO2 47, PO2 56 and bicarb 28.3. Stroke protocol was called 00:39 CT of the head shows acute parenchymal hemorrhage involving the right parietal and occipital lobes measuring 5.8 x 3.7 x 5.6 cm. Hematoma volume 60 cc. Acute subdural hematoma adjacent to the right frontoparietal and lateral temporal lobes. Measures 12 to 13 mm in thickness adjacent to the lateral right frontal lobe. Thin layer of subdural blood extends along the interhemispheric fissure. A hematocrit level is noted within the subdural hematoma suggesting hyper acute age. Scattered subarachnoid hemorrhage in the sulci over the right cerebral convexity. Mass-effect upon the right cerebral hemispheres resulting in subfalcine herniation with 1.9 cm of leftward shift in the midline structure. Basal cisterns completely effaced. Uncal herniation with deformity of the mid brain. Small 7 mm hemorrhage in the dorsal aspect of the midbrain on the left. 00:45 I attempted to call her sister who is the person to contact. Her number is disconnected. I then called her son, Jay. I was able to explain to him the depth of her disease. The severity of illness. He initially asked that everything be done. His mom is a full code. If that meant transferring her to an outside facility to do so. I then spoke to [facility] neurology. [facility] neurology referred me to [facility] neurosurgery on-call, Dr. Mace. Dr. Mace and I spoke. On the basis of my verbal report, he felt that the patient was beyond salvage. While he would be willing to accept her in his ICU, he would not be doing surgery on a patient that was still catastrophic in her presentation. I then we spoke to her son. He wanted to come to the hospital to see his mom before he made any other decisions. 01:40 The patient is now having hypotension. Tachycardic to the 120s. I have transferred her to the ICU, and of asked emergency room physician to please electively intubate this patient. I have also started her on mannitol. 01:57 The patient has been intubated. Follow-up chest x-ray shows borderline heart size with mild pulmonary vascular congestion, and the tube is 3.9 cm above the mukesh. 02:00 I have spoken to the son. He is now been able to spend some time with his mom. He is also spoken to his brother, Garrett. He is also spoken to the patient's sister, Viridiana. I did a phone call with Aimee and Garrett. They both state that she would never want life this way. That she was already annoyed at the amount of physician intervention and hospitalization she has had in the last few months. While she did want everything done, she was in the frame of mind that she could get back her life. With this event, and my explanation of what the CAT scan looks like, and with Dr. Mace has described, they feel that they do not want anything further done. As such the patient is to remain intubated, on a mannitol drip. Garrett is going to come in and see her. We will then extubate her, and let her peacefully .I have notified [facility], transfer center, [place], the patient is not to be transferred. Into please notify Dr. Mace and thank him for his phone conversation with me. - ALLERGIES Allergies/Adverse Reactions: Allergies Allergy/AdvReac Type Severity Reaction Status Date / Time Sulfa (Sulfonamide Allergy Unknown Verified 07/13/18 23:20 Antibiotics) morphine AdvReac Nausea Verified 07/13/18 23:20 - MEDICATIONS Home Medications: Ambulatory Orders Medication Instructions Recorded Confirmed Aspirin [Children's Aspirin] 81 mg PO DAILY 07/14/18 07/14/18 Atorvastatin Calcium 40 mg PO QPM 07/14/18 07/14/18 Cyanocobalamin (Vitamin B-12) 1 tab PO DAILY 07/14/18 [Vitamin B-12] Garlic 580 mg PO DAILY 07/14/18 Levothyroxine Sodium 125 mcg PO QDAC 07/14/18 07/14/18 Losartan Potassium 25 mg PO DAILY 07/14/18 07/14/18 Metoprolol Tartrate 25 mg PO BID 07/14/18 07/14/18 Oxybutynin [Ditropan] 5 mg PO BID 07/14/18 07/14/18 Pantoprazole Sodium [Protonix] 40 mg PO QDAC 07/14/18 07/14/18 Sertraline HCl 100 mg PO DAILY 07/14/18 07/14/18 Ticagrelor [Brilinta] 90 mg PO BID 07/14/18 07/14/18 - PHYSICAL EXAM AT DISCHARGE Physical Exam Other/Comments: NO breath sounds, NO heart tones upon auscultation on exam. Patient pronounced @ 0717AM. - LABS Result Diagrams: 07/16/18 05:44 07/16/18 05:44 - DIAGNOSTIC IMAGING Diagnostic Imaging Results: Final report reviewed Diagnostic Imaging Results Comments: EXAM: CT HEAD EXAM DATE: 07/17/2018 01:03 AM CLINICAL HISTORY: 73-year-old female with sudden loss of consciousness and dilated pupils. IMPRESSION: 1. There is a large acute parenchymal hematoma involving the right parietal and occipital lobes measuring approximately 5.8 x 3.7 x 5.6 cm (approximate hematoma volume is 60 cc). There is mild to moderate surrounding edema. 2. There is also an acute/hyperacute right-sided holohemispheric subdural hematoma measuring up to 12-13 mm in thickness adjacent to the lateral right frontal lobe. There is also a small volume of scattered subarachnoid hemorrhage over the right frontal lobe convexity. 3. There is significant mass-effect resulting in subfalcine herniation with 19 mm of leftward shift in midline structures. There is complete effacement of the basal cisterns. There is uncal herniation with deformity of the midbrain. This is also associated with a 7 mm acute hemorrhage in the dorsal mid brain to the left of midline. 4. Mild dilatation of the left lateral ventricle compatible with early ventricular trapping. EXAM: MRI BRAIN WITHOUT CONTRAST EXAM DATE: 07/15/2018 12:25 PM Impressions: 1. No acute/subacute ischemic change. 2. Multifocal areas of unusual white matter signal change including bilateral cerebellum, right parietal, right occipital lobes, could be related to acute disseminated encephalomyelitis, other prior infectious/inflammatory process. The patient reportedly has a history of Lyme disease. No prior MRI brain imaging is available for comparison. Recommend postcontrast MRI brain imaging if possible for further evaluation. Correlate closely with the patient's neurological status, and clinical history/exposures. 3. No midline shift or herniation, no ventricular trapping. 4. Superimposed mild scattered typical white matter disease may be related to chronic small vessel ischemic disease. - TIME SPENT Time Spent in Discharge (Minutes): 30
[2018-07-17] MEDS ORDERED: CHLORHEXIDINE GLUCONATE 15 ML UDC PO SCH (09:00)
== END 2018-07-17 07:17 | disposition expired | DRG 693 ==
LOC: ED 23:02 → MS2 07-14 02:44 → ICU 07-17 01:46
PROVIDERS: ADMIT Internal Medicine; ATTEND Nurse Practitioner
PROC: 5A1935Z Respiratory Ventilation, Less than 24 Consecutive Hours (ICD-10-PCS; principal; 2018-07-17)
PROC: 0BH17EZ Insertion of Endotracheal Airway into Trachea, Via Natural or Artificial Opening (ICD-10-PCS; 2018-07-17)
DX: N13.6 Pyonephrosis (principal); Z87.442 Personal history of urinary calculi; Z87.440 Personal history of urinary (tract) infections; N20.0 Calculus of kidney; I62.01 Nontraumatic acute subdural hemorrhage; E07.9 Disorder of thyroid, unspecified; I60.9 Nontraumatic subarachnoid hemorrhage, unspecified; I10 Essential (primary) hypertension; E78.00 Pure hypercholesterolemia, unspecified; I25.10 Atherosclerotic heart disease of native coronary artery without angina pectoris; Z95.5 Presence of coronary angioplasty implant and graft; Z79.82 Long term (current) use of aspirin; R09.02 Hypoxemia; Z88.6 Allergy status to analgesic agent; Z88.2 Allergy status to sulfonamides; R56.9 Unspecified convulsions; G47.33 Obstructive sleep apnea (adult) (pediatric); R32 Unspecified urinary incontinence; I25.2 Old myocardial infarction; I95.9 Hypotension, unspecified; R00.0 Tachycardia, unspecified; E03.9 Hypothyroidism, unspecified; F32.9 Major depressive disorder, single episode, unspecified; Z96.641 Presence of right artificial hip joint; Z87.891 Personal history of nicotine dependence
CPT/HCPCS: 36415; 36600; 51702; 70450; 70553; 71045; 74176; 76770; 80048; 80053; 81001; 82803; 83605; 83690; 84443; 84484; 85025; 85610; 85730; 87040; 87086; 87150; 87181; 93005; 93306; 94002; 96361; 96374; 96375; 99284; A9270; J0330; 70551; 80306; 80307; 80329; 81003; 83036; 99285